=== PATIENT | male | born 1940 | race Caucasian/White ===

== ENCOUNTER 2022-12-03 14:39 | Emergency (ER) | payer MEDICARE, SELFPAY ==
[2022-12-03] VITALS (8 sets, daily range): BP systolic 125–162; BP diastolic 76–96; PULSE 84–95; RESP 16–18; TEMP 36.6; O2SAT 92–97; BMI 23.8
--- NOTE | 2022-12-03 17:30 | CTR_ITS ---
PROCEDURE INFORMATION: Exam: CT Head Without Contrast Exam date and time: 12/03/2022 6:16 PM Age: 82 years old Clinical indication: Weakness, extremity; Right; Additional info: Right sided weakness TECHNIQUE: Imaging protocol: Computed tomography of the head without contrast. Radiation optimization: All CT scans at this facility use at least one of these dose optimization techniques: automated exposure control; mA and/or kV adjustment per patient size (includes targeted exams where dose is matched to clinical indication); or iterative reconstruction. Other protocol: This patient has received 0 known CTs and 0 known cardiac nuclear medicine studies in the 12 months prior to the current study. COMPARISON: No relevant prior studies available. RADIATION DOSE METRICS: Total DLP (mGy-cm): 1121.53 FINDINGS: Brain: No acute infarct. No hemorrhage. Involutional changes of the brain, commensurate with age. No mass effect. Cerebral ventricles: Mild ex vacuo prominence of the ventricles, proportionate to the overall degree of cerebral volume loss. No significant ventriculomegaly. Paranasal sinuses: Visualized sinuses are unremarkable. No fluid levels. Mastoid air cells: Visualized mastoid air cells are well aerated. Bones/joints: Unremarkable. No acute fracture. Soft tissues: Unremarkable. CT/CT head wo con* [id number] IMPRESSION: No acute intracranial abnormality.
--- NOTE | 2022-12-03 17:31 | W.ED.EXTPRO ---
HPI - Extremity Problem General: Chief complaint: Extremity Problem,Nontraumatic Stated complaint: stroke like symptoms sent by pcp Time Seen by Provider: 12/03/22 17:10 History of Present Illness: Patient is brought in with a male family member today for reports of weakness on the right side. Between the patient and the family member I am able to gather that the patient went to bed feeling normally and woke up this morning with tingling and weakness in his right hand. The family member reports seeing the patient dropped his keys 2-3 times and states that that is abnormal for him. The family member reports that the patient looks normally in the face and also has speech that is his baseline. The family member reports that the patient is difficult to understand normally. The patient denies any history of stroke. He denies that he has any chronic medical problems and does not take any medications routinely at home. Associated symptoms: Deny chest pain or fever(s) Review of Systems Const: Denies: fever(s) or chills Card: Denies: chest pain or palpitations Resp: Denies: dyspnea, productive cough or non-productive cough GI: Denies: abdominal pain, nausea or vomiting : Denies: flank pain, difficulty urinating or dysuria Musc: Reports: muscle weakness Neuro: Reports: numbness in extremities and weakness in extremities; Denies: headache(s) PFSH ED PFSH: Social History Smoking and tobacco status: former smoker Quit status (tobacco): has quit using tobacco Second hand smoke exposure: No Alcohol intake: current Alcohol intake frequency: 0-2 Drinks per Day Desire information about alcohol rehabilitation?: No Adopted: No Household members: none Housing: House Physical Exam Const: COMMON NORMALS: alert ORIENTATION/CONSCIOUSNESS: Yes oriented to person, Yes oriented to place and Yes oriented to time (Patient oriented but struggles to tell me his birthdate) OTHER: The patient is lying in bed in no acute distress with his family member at the bedside. HPI is difficult to ascertain as the patient's speech is very difficult to understand and the family member does not know. Eye: GENERAL EYE: other (Right eye appears slightly drooped as compared to left eye) ALIGNMENT: Yes alignment normal PUPIL: Yes pupil size - right Right pupil size (mm): 2.5 and Yes pupil size - left Resp: COMMON NORMALS: normal respiratory effort, No use of accessory muscles and clear to auscultation bilaterally AUSCULTATION: clear to auscultation bilaterally GI: COMMON NORMALS: Normal to inspection, nondistended, normoactive bowel sounds present, Soft to palpation and non-tender PALPATION: Yes Soft to palpation Neuro: SENSORIUM/ORIENTATION: Yes alert, Yes oriented to person, Yes oriented to place and Yes oriented to time (Patient oriented but struggles to tell me his birthdate) COORDINATION/BALANCE: No [id number] test normal SPEECH: abnormal speech Details: garbled (Patient and family state baseline) and slurred SENSORY EXAM: Yes Normal double simultaneous stimulation for sensation COORDINATION: [id number] test abnormal OTHER: NIHSS-4 Course Vital Signs: Vital signs: Vital Signs Temperature 97.8 F 12/03/22 14:45 Pulse Rate 86 12/03/22 18:51 Respiratory Rate 16 12/03/22 18:51 Blood Pressure 151/76 12/03/22 20:28 Pulse Oximetry 94 12/03/22 18:51 Oxygen Delivery Me thod 12/03/22 18:51 MDM - Extremity (Nontraumatic) Medical Decision Making This is an 82-year-old male patient is in today for some changes in his strength and sensation of his right arm. The last time he knew normal was last night and then he woke up today feeling like his right arm was numb and not working appropriately. Patient was taken to an urgent care and diagnosed with a urinary tract infection. They started him on antibiotics for this but advised him to come to the ER for strokelike symptoms. Patient has baseline garbled slurred speech per himself and the family member. Patient does not see a primary care provider does not take continuous home medications. Patient does show a slight drift of his right arm, there is slight deviation of his tongue to the right, noted word searching at times, slurred and garbled dysarthric speech. I am unsure what is baseline or not. The family member says that the speech and the word searching is baseline. The CT head is normal, labs do not indicate major bacterial infection. Assessment remains unchanged during the time that the patient is in the ER. I discussed this case with Dr. Reynoso. He agreed with plan of care and work-up at this time. I discussed the results of test with the pt and his family member and discussed consulting neurology with admission to the hospital for observation and further evaluation. Patient does not want to be admitted to the hospital does wish to be discharged to home now. We discussed the risks of ischemic stroke. Patient is agreeable to starting a baby aspirin daily. I will consult case management to help patient set up with a primary care provider for further evaluation. Return to the ER as needed for any new or worsening symptoms Lab Data 12/03/22 17:00 12/03/22 17:[address] 12/03/22 17:30 IMPRESSION: No acute intracranial abnormality. Laboratory Results WBC 6.6 10^3/uL (4.0-10.0) 12/03/22 17:00 RBC 3.40 10^6/uL (4.1-5.3) L 12/03/22 17:00 Hgb 10.2 g/dL (11.7-16.6) L 12/03/22 17:00 Hct 32.8 % (42.0-52.0) L 12/03/22 17:00 MCV 96.5 fl (80-94) H 12/03/22 17:00 MCH 30.0 pg (28.0-34.0) 12/03/22 17:00 MCHC 31.1 g/dL (30.0-36.0) 12/03/22 17:00 RDW 14.8 % (12.1-15.1) 12/03/22 17:00 Plt Count 190 10^3/cmm (130-400) 12/03/22 17:00 MPV 10.5 fL (7.4-10.4) H 12/03/22 17:00 Neut % (Auto) 68.0 % 12/03/22 17:00 Lymph % (Auto) 17.5 % 12/03/22 17:00 [place] % (Auto) 13.7 % 12/03/22 17:00 Eos % (Auto) 0.2 % 12/03/22 17:00 Baso % (Auto) 0.3 % 12/03/22 17:00 Neut # (Auto) 4.49 10^3/uL (1.8-7.7) 12/03/22 17:00 Lymph # (Auto) 1.2 10^3/uL (0.8-4.8) 12/03/22 17:00 [place] # (Auto) 0.9 10^3/uL (0.2-0.9) 12/03/22 17:00 Eos # (Auto) 0.0 10^3/uL (0.0-0.8) 12/03/22 17:00 Baso # (Auto) 0.0 10^3/uL (0.0-0.1) 12/03/22 17:00 Nucleated RBC % (auto) 0 % 12/03/22 17:00 Nucleated RBCs # 0.0 /100WBC 12/03/22 17:00 PT 15.30 SECONDS (12.1-14.9) H 12/03/22 17:00 INR 1.17 (0.8-1.2) 12/03/22 17:00 APTT 32.8 SECONDS (23.9-36.7) 12/03/22 17:00 Sodium 137 mmol/L (136-145) 12/03/22 17:00 Potassium 3.7 mmol/L (3.5-5.1) 12/03/22 17:00 Chloride 101 mmol/L (98-107) 12/03/22 17:00 Carbon Dioxide 23 mmol/L (22-29) 12/03/22 17:00 Anion Gap 16.7 (5-19) 12/03/22 17:00 BUN 13 mg/dL (8-23) 12/03/22 17:00 Creatinine 0.8 mg/dL (0.7-1.2) 12/03/22 17:00 GFR Calculation Not Reportable 12/03/22 17:00 Glucose 100 mg/dL (65-115) 12/03/22 17:00 Calculated Osmolality 284 mOsm/kg (285-295) L 12/03/22 17:00 Calcium 9.0 mg/dL (8.5-10.5) 12/03/22 17:00 Total Bilirubin 1.3 mg/dL (0.15-1.2) H 12/03/22 17:00 AST 34 U/L (0-40) 12/03/22 17:00 ALT 28 U/L (0-41) 12/03/22 17:00 Alkaline Phosphatase 24 U/L (40-130) L 12/03/22 17:00 Total Protein 6.9 g/dL (6.6-8.7) 12/03/22 17:00 Albumin 4.0 g/dL (3.5-5.2) 12/03/22 17:00 Globulin 2.9 g/dL (1.3-4.6) 12/03/22 17:00 Discharge Plan Discharge Patient Disposition: Home Clinical Impression: Acute right-sided weakness Condition: Stable Prescriptions: New aspirin 81 mg tablet,delayed release (DR/EC) 81 mg PO DAILY Qty: 14 0RF No Action sulfamethoxazole-trimethoprim [Bactrim DS] 800-160 mg tablet 1 tab PO BID 7 Days Qty: 14 0RF Discharge Orders: Discharge ED (Routine); Ordered 12/03/22 Ordered By: Ca Latham Discharge Diet: Usual diet Discharge Activity: Increase activity as tolerated Patient Instructions: Stroke (DC) Activity Restrictions/Additional Instructions: Your testing today did not indicate any acute infection or abnormality of your brain. As we discussed that does not rule out an ischemic stroke. I have referred you to neurology in case management will help you to establish with a primary care provider. I recommend starting baby aspirin daily I have ordered this medication for you. Be sure and take the antibiotic prescribed for you for your urinary tract infection earlier today. Return to the emergency department as needed for any new or worsening symptoms. Coding Level of Care Code ED Feed Management Advisor for Maya Warner
[2022-12-03 17:37] LABS: Basophils % 0.3 %; Eosinophils % 0.2 %; Hematocrit 32.8 % (42.0-52.0); Hemoglobin 10.2 g/dL (11.7-16.6); Lymphocytes # 1.2 10^3/uL (0.8-4.8); Lymphocytes % 17.5 %; Mean Corpuscular HGB Conc 31.1 g/dL (30.0-36.0); Mean Corpuscular Volume 96.5 fl (80-94); Mean Platelet Volume 10.5 fL (7.4-10.4); Monocytes # 0.9 10^3/uL (0.2-0.9); Monocytes % 13.7 %; Neutrophils # 4.49 10^3/uL (1.8-7.7); Nucleated Red Blood Cells % 0 %; Platelet Count 190 10^3/cmm (130-400); Red Cell Distribution Width 14.8 % (12.1-15.1); White Blood Count 6.6 10^3/uL (4.0-10.0)
[2022-12-03 17:51] LABS: INR 1.17 (0.8-1.2)
[2022-12-03 17:52] LABS: Partial Thromboplastin Time 32.8 SECONDS (23.9-36.7)
[2022-12-03 18:08] LABS: Alanine Aminotransferase 28 U/L (0-41); Alkaline Phosphatase 24 U/L (40-130); Anion Gap 16.7 (5-19); Aspartate Amino Transferase 34 U/L (0-40); Blood Urea Nitrogen 13 mg/dL (8-23); Carbon Dioxide 23 mmol/L (22-29); Chloride 101 mmol/L (98-107); Globulin 2.9 g/dL (1.3-4.6); Glucose 100 mg/dL (65-115); Osmolality Calculated 284 mOsm/kg (285-295); Potassium 3.7 mmol/L (3.5-5.1); Sodium 137 mmol/L (136-145); Total Bilirubin 1.3 mg/dL (0.15-1.2); Total Protein 6.9 g/dL (6.6-8.7)
--- NOTE | 2022-12-07 15:02 | DCPLANNER ---
Addendum entered by Yolis Silva 03/18/23 08:50: This appointment was cancelled Addendum entered by Yolis Silva 12/10/22 09:00: Patient has a follow up appointment scheduled for Friday, March 17, [address] Blanco at neurology. Clinic will call patient with appointment information. Original Note: affiliate manager had message to schedule a follow up appointment for patient with neurology. affiliate manager sent patients information to the front office staff at neurology. Patients information will be printed and reviewed. Clinic will call patient with appointment information. affiliate manager also had message to speak with patient about getting established with a primary care physician. affiliate manager called phone number [phone], unable to speak with patient at this time. A voicemail was left for patient to return case assembler phone call.
== END 2022-12-03 20:29 | disposition home or self-care (01) ==
PROVIDERS: Emergency Provider Nurse Practitioner Family
DX: R53.1 Weakness (principal); N39.0 Urinary tract infection, site not specified
CPT/HCPCS: 70450; 80053; 81003; 85025; 85610; 85730; 87077; 87086; 87184; 99284

== ENCOUNTER 2023-07-21 11:52 | Emergency (ER) | payer MEDICARE, SELFPAY ==
--- NOTE | 2023-07-21 11:56 | XR_ITS ---
WS: [id number] EXAMINATION: XR chest 1V portable [id number] REASON FOR EXAM: a fib COMPARISON: 04/08/2008 ORDER DATE: 07/21/2023 11:59 AM TECHNIQUE: A single, portable frontal chest x-ray was obtained. X-RAY FINDINGS/IMPRESSION: There is moderate size right effusion and small left effusion with possible subtle underlying infiltr ate which is not well demonstrated due to the opacity from the effusions. The remaining lungs are cathy ar. There is atherosclerotic aortic change. Consider further evaluating the lung bases either with bi lateral decubitus views of the chest to shift to the effusions or CT of the chest.
--- NOTE | 2023-07-21 11:57 | ECG_ITS ---
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 Measurements Intervals [place] Rate: 134 P: 0 RI: 0 QRS: -75 QRSD: 78 T: 252 QT: 324 QTc: 485 Interpretive Statements ATRIAL FIBRILLATION WITH RAPID VENTRICULAR RESPONSE LEFT ANTERIOR FASCICULAR BLOCK [QRS AXIS <= -45, QR IN I, RS IN II] POSSIBLE ANTERIOR MYOCARDIAL INFARCTION , PROBABLY OLD [30 ms Q WAVE IN V3/V4, OR R < 0.2 mV IN V4] Compared to ECG 08/23/2019 12:10:48 Myocardial infarct finding now present Sinus bradycardia no longer present Electronically Signed On 07-21-2023 12:44:18 CDT by Zana Sidhu M.D. [id number]
[2023-07-21 11:59] VITALS: BP 112/85; PULSE 129; RESP 19; O2SAT 99
[2023-07-21 12:17] LABS: Basophils % 0.6 %; Eosinophils % 0.2 %; Hematocrit 37.3 % (37-53); Lymphocytes # 0.8 10^3/uL (0.8-4.8); Lymphocytes % 16.3 %; Mean Corpuscular HGB Conc 31.6 g/dL (30-55); Mean Corpuscular Hemoglobin 30.4 pg (27-33); Mean Corpuscular Volume 96.1 fl (82-101); Mean Platelet Volume 11.2 fL (7.4-10.4); Monocytes # 0.7 10^3/uL (0.2-0.9); Monocytes % 14.4 %; Neutrophils # 3.21 10^3/uL (1.8-7.7); Neutrophils % 68.1 %; Nucleated Red Blood Cells % 0 %; Platelet Count 151 10^3/cmm (157-399); Red Blood Count 3.88 10^6/uL (3.85-5.65); Red Cell Distribution Width 15.9 % (12.1-15.1); White Blood Count 4.72 10^3/uL (3.29-11.43)
[2023-07-21] MEDS: dilTIAZem 5 mg/mL SDV 5 mL 10 MG IVP (12:27)
[2023-07-21 12:28] LABS: INR 1.19 (0.8-1.2)
[2023-07-21 12:35] LABS: Troponin(5th) Baseline 20 ng/L (0-15)
--- NOTE | 2023-07-21 12:39 | ED_ITS ---
HPI - Weakness General: Chief complaint: Weakness Stated complaint: Weakness/ Afib Time Seen by Provider: 07/21/23 11:56 History of Present Illness: Patient presents to the ER from failure clinic sent over for A-fib RVR. EMS reports he had a heart rate around 100 2260 beats a minute, patient denies having any history of A-fib or taken any medicines patient also denies any history of cardiac illness. Patient was being seen over there for swelling in his bilateral lower extremities. Review of Systems General: Reports: 10 or more systems reviewed and unremarkable except in HPI and below PFSH ED PFSH: Social History Smoking and tobacco status: former smoker Quit status (tobacco): has quit using tobacco Second hand smoke exposure: No Alcohol intake: current Alcohol intake frequency: 0-2 Drinks per Day Desire information about alcohol rehabilitation?: No Adopted: No Household members: none Housing: House Physical Exam Const: COMMON NORMALS: no acute distress, average body habitus, patient oriented x3, no limitations, healthy appearing, alert and well nourished HENMT: COMMON NORMALS: normocephalic, atraumatic, hearing grossly normal bilaterally, external ears normal, Normal external nose present and moist oral mucous membranes HEAD & SCALP: normocephalic and atraumatic NOSE: Normal external nose present EXTERNAL EAR: Yes external ears normal Neck/C-Spine: COMMON NORMALS: full ROM, no lymphadenopathy, supple, no meningeal signs, no JVD and Thyroid normal THYROID: Thyroid normal Lymph: LYMPHATIC: no lymphadenopathy noted Chest: COMMONS NORMALS: normal inspection of the chest and normal palpation of entire chest wall Resp: COMMON NORMALS: normal respiratory effort, No retractions, No use of accessory muscles and clear to auscultation bilaterally AUSCULTATION: clear to auscultation bilaterally Cardio: COMMON NORMALS: no JVD and S1 normal heart sound present; negative for regular rate (Tachycardic) and negative for regular rhythm (Irregularly irregular) RATE: abnormal rate (Tachycardic) RHYTHM: abnormal rhythm (Irregularly irregular) HEART SOUNDS: S1 normal heart sound present GI: COMMON NORMALS: Normal to inspection, nondistended, normoactive bowel sounds present, Soft to palpation, non-tender, No hepatosplenomegaly present and no masses PALPATION: Yes Soft to palpation and Yes No hepatosplenomegaly present : COMMON NORMALS: Yes no CVA tenderness BLADDER/KIDNEY EXAM: Yes no CVA tenderness Back/Pelvis: COMMON NORMALS: no CVA tenderness Neuro: COMMON NORMALS: patient oriented x3 SENSORIUM/ORIENTATION: Yes alert MENINGEAL SIGNS: Yes no meningeal signs Course Vital Signs: Vital signs: Vital Signs Pulse Rate 103 H 07/21/23 16:14 Respiratory Rate 16 07/21/23 14:51 Blood Pressure 122/74 07/21/23 16:14 Pulse Oximetry 94 07/21/23 16:14 Oxygen Delivery Me thod Room Air 07/21/23 14:51 MDM - Weakness Medical Decision Making Patient presents to the ER with A-fib with RVR new onset. Patient was worked up with a standard cardiac fashion that showed an elevated BNP of approximately 2500, serial troponins were benign, after 20 mg Cardizem IM patient's heart rate stabilized around 95-100. Further testing was discussed with the patient who decided that he did not want to stay and wanted be worked up on an outpatient basis. I feel this is logical because the patient was stable during his time here. Patient will be placed on Eliquis and Cardizem p.o. and be referred back to his family practice doctor for further evaluation and treatment. Differential Diagnosis Unlikely acute myocardial infarction, anemia, hypoglycemia, hypothyroidism, rhabdomyolysis, sepsis or dehydration Medical Records I reviewed the patient's medical records. Lab Data I reviewed the patient's lab results. 07/21/23 12:10 07/21/23 12:10 Laboratory Results WBC 4.72 10^3/uL (3.29-11.43) 07/21/23 12:10 RBC 3.88 10^6/uL (3.85-5.65) 07/21/23 12:10 Hgb 11.80 g/dL (11.27-16.99) 07/21/23 12:10 Hct 37.3 % (37-53) 07/21/23 12:10 MCV 96.1 fl (82-101) 07/21/23 12:10 MCH 30.4 pg (27-33) 07/21/23 12:10 MCHC 31.6 g/dL (30-55) 07/21/23 12:10 RDW 15.9 % (12.1-15.1) H 07/21/23 12:10 Plt Count 151 10^3/cmm (157-399) L 07/21/23 12:10 MPV 11.2 fL (7.4-10.4) H 07/21/23 12:10 Neut % (Auto) 68.1 % 07/21/23 12:10 Lymph % (Auto) 16.3 % 07/21/23 12:10 [place] % (Auto) 14.4 % 07/21/23 12:10 Eos % (Auto) 0.2 % 07/21/23 12:10 Baso % (Auto) 0.6 % 07/21/23 12:10 Neut # (Auto) 3.21 10^3/uL (1.8-7.7) 07/21/23 12:10 Lymph # (Auto) 0.8 10^3/uL (0.8-4.8) 07/21/23 12:10 [place] # (Auto) 0.7 10^3/uL (0.2-0.9) 07/21/23 12:10 Eos # (Auto) 0.0 10^3/uL (0.0-0.8) 07/21/23 12:10 Baso # (Auto) 0.0 10^3/uL (0.0-0.1) 07/21/23 12:10 Nucleated RBC % (auto) 0 % 07/21/23 12:10 Nucleated RBCs # 0.0 /100WBC 07/21/23 12:10 PT 15.50 SECONDS (12.1-14.9) H 07/21/23 12:10 INR 1.19 (0.8-1.2) 07/21/23 12:10 Sodium 139 mmol/L (136-145) 07/21/23 12:10 Potassium 4.5 mmol/L (3.5-5.1) 07/21/23 12:10 Chloride 105 mmol/L (98-107) 07/21/23 12:10 Carbon Dioxide 24 mmol/L (22-29) 07/21/23 12:10 Anion Gap 14.5 (5-19) 07/21/23 12:10 BUN 16 mg/dL (8-23) 07/21/23 12:10 Creatinine 0.7 mg/dL (0.7-1.2) 07/21/23 12:10 GFR Calculation Not Reportable 07/21/23 12:10 Glucose 131 mg/dL (65-115) H 07/21/23 12:10 Calculated Osmolality 291 mOsm/kg (285-295) 07/21/23 12:10 Calcium 8.8 mg/dL (8.5-10.5) 07/21/23 12:10 Magnesium 2.2 mg/dL (1.7-2.3) 07/21/23 12:10 Total Bilirubin 1.3 mg/dL (0.15-1.2) H 07/21/23 12:10 AST 19 U/L (0-40) 07/21/23 12:10 ALT 11 U/L (0-41) 07/21/23 12:10 Alkaline Phosphatase 32 U/L (40-130) L 07/21/23 12:10 Troponin T Baseline 20 ng/L (0-15) H 07/21/23 12:10 Troponin T 120 Minute 21.66 ng/L (0-15) H 07/21/23 13:48 Delta Troponin T 1.66 ABS# (0-10) 07/21/23 13:48 NT-Pro-B Natriuret Pep 2563 pg/mL (0-450) H 07/21/23 12:10 Total Protein 7.2 g/dL (6.6-8.7) 07/21/23 12:10 Albumin 3.6 g/dL (3.5-5.2) 07/21/23 12:10 Globulin 3.6 g/dL (1.3-4.6) 07/21/23 12:10 TSH 5.91 uIU/mL (0.27-4.20) H 07/21/23 12:10 All radiology interpretation(s) finalized by discharge EKG Data EKG 1: I personally reviewed and interpreted this EKG as follows: EKG interpretation date: 07/21/23 EKG interpretation time: 12:16 Prior EKG tracings: not available for review Interpretation: EKG showed ventricular rate of 134 bpm, QRS duration 78, QTc of 403, atrial fibrillation with RVR. EKG 2: I personally reviewed and interpreted this EKG as follows: EKG interpretation date: 07/21/23 EKG interpretation time: 14:05 Prior EKG tracings: available for review Interpretation: EKG showed ventricular rate 130 bpm, QRS duration 85, QTc 406, atrial flutter/tachycardia with RVR Discharge Plan Discharge Patient Disposition: Home Clinical Impression: Atrial fibrillation with RVR Condition: Stable Prescriptions: New Eliquis 5 mg tablet 5 mg PO BID Qty: 60 0RF Cardizem CD 120 mg capsule,extended release 24hr 120 mg PO DAILY Qty: 30 0RF Discharge Orders: Discharge ED (Routine); Ordered 07/21/23 Ordered By: Yuriy Garcia Patient Instructions: Anticoagulation Therapy, A-fib (Atrial Fibrillation) (ED) Activity Restrictions/Additional Instructions: Please take all medicine as directed. Please follow-up with your family practice physician within the next 7 days for further evaluation and treatment. This may include things such as echocardiogram, cardiac stress test, and/or referral to a freight car builder. Coding Level of Care Code ED Tinware Lithograph Press Operator for Maya Warner
[2023-07-21 12:46] LABS: Alanine Aminotransferase 11 U/L (0-41); Albumin Level 3.6 g/dL (3.5-5.2); Alkaline Phosphatase 32 U/L (40-130); Anion Gap 14.5 (5-19); Aspartate Amino Transferase 19 U/L (0-40); Blood Urea Nitrogen 16 mg/dL (8-23); Calcium 8.8 mg/dL (8.5-10.5); Carbon Dioxide 24 mmol/L (22-29); Chloride 105 mmol/L (98-107); Globulin 3.6 g/dL (1.3-4.6); Glucose 131 mg/dL (65-115); Magnesium 2.2 mg/dL (1.7-2.3); NT Pro B Type Natriuretic Pept 2563 pg/mL (0-450); Osmolality Calculated 291 mOsm/kg (285-295); Potassium 4.5 mmol/L (3.5-5.1); Sodium 139 mmol/L (136-145); Thyroid Stimulating Hormone 5.91 uIU/mL (0.27-4.20); Total Bilirubin 1.3 mg/dL (0.15-1.2); Total Protein 7.2 g/dL (6.6-8.7)
[2023-07-21 12:59] VITALS: BP 110/76; PULSE 112; RESP 22
--- NOTE | 2023-07-21 14:05 | ECG_ITS ---
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 Measurements Intervals [place] Rate: 130 P: 0 CA: 0 QRS: -57 QRSD: 85 T: 264 QT: 329 QTc: 485 Interpretive Statements ATRIAL FIBRILLATION WITH RAPID VENTRICULAR RESPONSE LEFT AXIS DEVIATION [QRS AXIS < -30] ST DEVIATION AND MODERATE T-WAVE ABNORMALITY, CONSIDER LATERAL ISCHEMIA [-0.1+ mV T-WAVE IN I/aVL/V5/V6] Compared to ECG 07/21/2023 12:16:26 Left-axis deviation now present T-wave abnormality now present Possible ischemia now present Left anterior fascicular block no longer present Myocardial infarct finding no longer present Electronically Signed On 07-21-2023 16:36:37 CDT by Zana Sidhu M.D. [id number]
[2023-07-21 14:08] VITALS: BP 128/89; PULSE 120; RESP 23; O2SAT 91
[2023-07-21] MEDS: dilTIAZem 5 mg/mL SDV 5 mL 20 MG IVP (14:22)
[2023-07-21 14:23] LABS: Troponin 5 2HR 21.66 ng/L (0-15)
[2023-07-21 14:24] VITALS: BP 120/97; PULSE 116; RESP 17; O2SAT 96
[2023-07-21 14:24] LABS: Troponin 5 2HR Delta 1.66 ABS# (0-10)
--- NOTE | 2023-07-21 14:26 | CT_ITS ---
WS: [id number] CT CHEST TECHNIQUE: Contrast enhanced CT of the chest with coronal and sagittal reformatted images. CLINICAL INFORMATION: dyspnea, abnormal cxr COMPARISON: None. DLP: 273.[address] scans at [facility] use at least one of these dose optimization techniques: automated e xposure control; mA and/or kV adjustment per patient size (includes targeted exams where dose is matc hed to clinical indication); or iterative reconstruction. FINDINGS: Moderate chronic emphysematous changes. Moderate RIGHT and small pleural effusions. Compressive atele ctasis in the lung bases. Subsegmental atelectasis in the lingula. RIGHT middle lobe nodule along the fissure measuring 7 mm. A few calcified granulomas. Normal caliber thoracic aorta. Aortic calcificat ion. Coronary calcification. No mediastinal or hilar lymphadenopathy. No axillary lymphadenopathy. Small amount of perihepatic and perisplenic ascites. Heterogeneous enlarged liver partially visualize d. Tiny pericardial effusion. Adrenal glands are normal. Incidental splenic cyst and granulomas. Ankylosis thoracic spine. Cardiomegaly. Enlarged RIGHT heart. IMPRESSION: 1. Moderate RIGHT and small LEFT pleural effusions with compressive atelectasis in the lung bases. R ecommend correlation for pneumonia. 2. Moderate chronic emphysematous changes. 3. Cardiomegaly with enlarged RIGHT heart. Contrast reflux into the hepatic veins. Recommend correla tion with RIGHT heart dysfunction. 4. No mediastinal or hilar lymphadenopathy. 5. Partially visualized enlarged heterogeneous liver. Recommend correlation with liver function stud ies. 6. Partially visualized small amount of perihepatic and perisplenic ascites.
[2023-07-21 14:51] VITALS: BP 182/69; PULSE 92; RESP 16; O2SAT 94
[2023-07-21] MEDS: iohexol 350 mg/mL 500 mL Btl (per mL) IV (14:51)
[2023-07-21 16:14] VITALS: BP 122/74; PULSE 103; O2SAT 94
== END 2023-07-21 16:16 | disposition home or self-care (01) ==
PROVIDERS: Emergency Provider Emergency Medicine
DX: I48.20 Chronic atrial fibrillation, unspecified (principal); Z87.891 Personal history of nicotine dependence
CPT/HCPCS: 36415; 71045; 71260; 80053; 83735; 83880; 84443; 84484; 85025; 85610; 93005; 96374; 96375; 99285; J3490; Q9967

== ENCOUNTER → 2023-08-03 13:51 | Outpatient (BNVA) | payer MEDICARE, SELFPAY | PROVIDERS: PCP Family Medicine; Referring Provider Family Medicine; Visit Provider Internal Medicine Cardiovascular Disease | DX: I48.91 Unspecified atrial fibrillation (principal); R60.9 Edema, unspecified; R06.02 Shortness of breath; Z87.891 Personal history of nicotine dependence; Z79.01 Long term (current) use of anticoagulants | CPT/HCPCS: 99204 ==

== ENCOUNTER → 2023-08-17 12:52 | Outpatient (BNVA) | payer MEDICARE, SELFPAY | PROVIDERS: PCP Family Medicine; Visit Provider Nurse Practitioner Family | DX: I48.91 Unspecified atrial fibrillation (principal); Z79.01 Long term (current) use of anticoagulants; Z87.891 Personal history of nicotine dependence | CPT/HCPCS: 99213 ==

== ENCOUNTER 2023-08-19 08:36 | Outpatient (CLI) | payer MEDICARE, SELFPAY ==
--- NOTE | 2023-08-19 08:45 | USCV_ITS ---
Caity Nolan(Bruce) Age: 83 Gender: M : 1940 Exam Date: 08/19/2023 09:01 Ordering Phys: Luis Miguel Gaffney MD ([email or web address]) Technologist: Exam Location: [facility] [place] Indication: chest pain BP: 125 / 74 HR: 115 Rhythm: Sinus Technical Quality: Adequate MEASUREMENTS (Male / Female) Normal Values 2D ECHO LV Diastolic Diameter PLAX 4.1 cm 4.2 - 5.9 / 3.9 - 5.3 cm LV Systolic Diameter PLAX 2.9 cm IVS Diastolic Thickness 1.2 cm 0.6 - 1.0 / 0.6 - 0.9 cm IVS Systolic Thickness 1.7 cm LVPW Diastolic Thickness 1.1 cm 0.6 - 1.0 / 0.6 - 0.9 cm LVPW Systolic Thickness 1.5 cm LVOT Diameter 2.0 cm LV Ejection Fraction 2D Teich 53.9 % LV Ejection Fraction MOD 2C 55.4 % LV Ejection Fraction 2C AL 57.2 % LA Diameter 3.8 cm IVC Diameter 1.9 cm M-MODE Aortic Annulus Diameter 3.4 cm LA Ao Ratio MM 1.1 MV E Point Septal Separation 1.0 cm DOPPLER AV Peak Velocity 88.0 cm/s LVOT Peak Velocity 69.0 cm/s AV Area Cont Eq vti 2.3 cm squared AV Area Cont Eq pk 2.5 cm squared MV Area PHT 4.9 cm squared Mitral E to A Ratio 3.3 MV E' Velocity 47.0 cm/s Mitral E to MV E' Ratio 8.1 Mitral E to LV E' Lateral Ratio 8.8 Mitral E to LV E' Septal Ratio 7.5 TR Peak Velocity 236.0 cm/s TR Peak Gradient 22.3 mmHg TV Peak E Velocity 140.0 cm/s Right Atrial Pressure 8.0 mmHg Pulmonary Artery Systolic Pressu 30.3 mmHg RV Acceleration Time 0.1 s FINDINGS Left Ventricle Normal left ventricular size and systolic function, EF 61 %. No regional wall motion abnormalities. Right Ventricle Normal LV size with a slightly diminished ejection fraction Right Atrium Mildly increased right atrial size. Left Atrium Mildly increased left atrial size. Mitral Valve Thickened mitral valve. Mild mitral annular calcification. Mild to moderatemitral valve regurgitation. Aortic Valve Thickened aortic valve. Tricuspid Valve Mild tricuspid valve regurgitation. Estimated pulmonary artery peak systolic pressure of 30 mm Hg Pulmonic Valve Pulmonic valve not well visualized. Pericardium Small pericardial effusion. Aorta Normal aortic annulus size. IVC Normal IVC dimension with <50% respiratory change of the inferior vena cava. CONCLUSIONS Normal left ventricular size and systolic function, EF 61 %. No regional wall motion abnormalities. Mild biatrial enlargement Small pericardial effusion. Mild tricuspid valve regurgitation. Estimated pulmonary artery peak systolic pressure of 30 mm Hg. Thickened aortic valve. Thickened mitral valve. Mild mitral annular calcification. Mild to moderatemitral valve regurgitation. There are no intracardiac masses. Compared to the study from 09/11/2019, the biatrial enlargement and pericardial effusion appears to be new. The patient also appears to be in atrial fibrillation during the study. Revised report of the study from 12/2022 Dr Luis Miguel Gaffney MD [facility] (Electronically Signed) Final Date: 23 August 2023 08:52 Amended: 26 August 2023 08:57 C
== END 2023-08-19 08:37 | disposition home or self-care (01) ==
PROVIDERS: PCP Family Medicine; Visit Provider Internal Medicine Cardiovascular Disease
DX: R06.09 Other forms of dyspnea (principal); R07.9 Chest pain, unspecified; I48.91 Unspecified atrial fibrillation; I31.39 Other pericardial effusion (noninflammatory); I08.3 Combined rheumatic disorders of mitral, aortic and tricuspid valves
CPT/HCPCS: 93306

== ENCOUNTER 2023-08-19 09:40 | Outpatient (CLI) | payer MEDICARE, SELFPAY ==
--- NOTE | 2023-08-19 | ECG_ITS ---
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 Interpretive Statements NAME OF STUDY: LEXISCAN SESTAMIBI STRESS TEST INDICATION: AFIB PROCEDURE: At the baseline, the EKG revealed atrial fibrillation with a diffuse nonspecific ST changes. Controlled ventricular response rate of 84 bpm. The baseline heart was 123 bpm with a blood pressue of 144/89 mm of Hg Lexiscan was infused over a period of 20 seconds. A total of 0.4 milligrams of Lexiscan was infused. The stress phase was continued for a total of 5 minutes. Heart rate at the end of the stress phase was 135 bpm with a blood pressure 146/106 mm of Hg. The EKG at the peak infusion revealed no significant changes. Sestamibi was injected 20 seconds after the Lexiscan infusion. Heart rate at the end of the recovery phase was 155 bpm with a blood pressure of 127/86 mm of Hg. CONCLUSION: 1. No significant EKG changes with the LexiScan infusion 2. No LexiScan induced chest pain or cardiac arrhythmia 3. Normal blood pressure and heart rate response 4. Sestamibi/sestamibi perfusion scan pending; see separate report. Electronically Signed On 09-03-2023 12:30:41 LOOM FIXER by Luis Miguel Gaffney M.D. [id number]
[2023-08-19 10:28] VITALS: BMI 26.9
--- NOTE | 2023-08-19 10:33 | NMCV_ITS ---
NM mara perf SPECT r/s* [id number] Caity Nolan(Bruce) Age: 83 Gender: M : 1940 Exam Date: 08/19/2023 10:54 Ordering Phys: Luis Miguel Gaffney MD ([email or web address]) Technologist: DYLON Martel Exam Location: [facility] Indications: CORONARY ANGIOPLASTY STATUS STRESS TEST Please see separate stress test report in [facility] for full findings IMAGE PROTOCOL Rest/Stress 1 Lexiscan Day Radiopharmaceutical Dose (mCi) Administration Site Administered by Rest: Tc-99m 10.6 IV DYLON Donis Sestamibi Stress:Tc-99m 32.3 IV DYLON Donis Sestamibi Rest: 19-Aug-2023 60 Discovery 630 Stress: 19-Aug-2023 30 Discovery 630 0.4mg Lexiscan. Supine position only as patient was unable to lay prone. SPECT RESULTS Technical Quality: Excellent Raw Data Analysis: Normal Image Corrections: No attenuation or motion correction applied Summed Stress Score: 0 Summed Rest Score: 1 Summed Difference Score: 0 PERFUSION FINDINGS SPECT images demonstrate homogeneous tracer distribution throughout the myocardium. FUNCTIONAL RESULTS (calculated via Gated SPECT) Stress Image LV EF (%): 47 Stress EDV (mL):68 TID: 0.88 Stress ESV (mL):36 FUNCTIONAL FINDINGS: LV systolic function is mildly reduced with EF of 47% with mild global hypokinesis. IMPRESSIONS 1. Normal myocardial perfusion imaging with no evidence of ischemia. 2. LV systolic function is mildly reduced with EF of 47%. Mild global hypokinesis seen. Zana Sidhu MD (Electronically Signed) Final Date: 19 August 2023 13:03 S
[2023-08-19] MEDS: regadenoson 0.4 Mg/5 ml Syringe IVP (11:48)
[2023-08-19 12:17] VITALS: BP 134/89; PULSE 125
== END 2023-08-19 09:41 | disposition home or self-care (01) ==
LOC: RAD 09:40 → CDL 09:42
PROVIDERS: PCP Family Medicine; Visit Provider Internal Medicine Cardiovascular Disease
DX: I48.91 Unspecified atrial fibrillation (principal); Z98.61 Coronary angioplasty status
CPT/HCPCS: 36415; 78452; 93017; 96374; A9500; J2785

== ENCOUNTER → 2023-10-25 14:27 | Outpatient (BNVA) | payer MEDICARE, SELFPAY | PROVIDERS: PCP Family Medicine; Visit Provider Internal Medicine Cardiovascular Disease | DX: I48.91 Unspecified atrial fibrillation (principal); R60.9 Edema, unspecified; I50.30 Unspecified diastolic (congestive) heart failure; R53.1 Weakness; R06.02 Shortness of breath; Z87.891 Personal history of nicotine dependence; R00.2 Palpitations; Z79.01 Long term (current) use of anticoagulants | CPT/HCPCS: 36415; 80048; 83880; 99214 ==

== ENCOUNTER 2023-11-17 12:41 | Outpatient (CLI) | payer MEDICARE, SELFPAY ==
--- NOTE | 2023-11-17 13:01 | XR_ITS ---
WS: [id number] Acute abdomen series, 11/17/2023 Clinical Data: constipation Comparison: None. Findings: No nodules, masses or effusions are seen. The heart is normal. No pneumonia or pneumothorax is presen t. The pulmonary vascularity is not increased. The aortic arch and descending thoracic aorta show mil d tortuosity. The flat and upright films of the abdomen show no free air. There is a slight dextroscoliosis of the lumbar spine. 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 There is air in the small bowel and the colon but there is no obstruction. Vascular calcification is present. Impression: 1 atherosclerosis. 2. Moderate generalized ileus.
== END 2023-11-17 12:42 | disposition home or self-care (01) ==
LOC: RAD 12:44
PROVIDERS: PCP Family Medicine; Visit Provider Nurse Practitioner
DX: K59.00 Constipation, unspecified (principal); I70.90 Unspecified atherosclerosis; K56.7 Ileus, unspecified
CPT/HCPCS: 74021

== ENCOUNTER 2023-11-17 16:37 | Emergency (ER) | payer MEDICARE, SELFPAY ==
[2023-11-17 17:06] VITALS: BP 93/44; PULSE 122; RESP 18; TEMP 37.1; O2SAT 99
--- NOTE | 2023-11-17 18:11 | CTR_ITS ---
PROCEDURE INFORMATION: Exam: CT Abdomen And Pelvis With Contrast Exam date and time: 11/17/2023 7:35 PM Age: 83 years old Clinical indication: Abdominal pain; Generalized; Additional info: Constipation TECHNIQUE: Imaging protocol: Computed tomography of the abdomen and pelvis with contrast. Radiation optimization: All CT scans at this facility use at least one of these dose optimization techniques: automated exposure control; mA and/or kV adjustment per patient size (includes targeted exams where dose is matched to clinical indication); or iterative reconstruction. Contrast material: OMNI 350; Contrast volume: 100 ml; Contrast route: INTRAVENOUS (IV); COMPARISON: CR XR abdomen 3V [id number] 11/17/2023 1:16 PM RADIATION DOSE METRICS: Total DLP (mGy-cm): 387 FINDINGS: Coronary arteries: Coronary arterial atherosclerotic calcifications are present. Liver: Periportal edema in the liver.Multiple punctate calcifications in the spleen consistent with prior granulomatous infection. Gallbladder and bile ducts: Normal. No calcified stones. No ductal dilation. Pancreas: Normal. No ductal dilation. Spleen: Multiple cystic structures in the spleen measuring up to 2.1 cm. These may represent simple cysts. Adrenal glands: Normal. No mass. Kidneys and ureters: Bilateral simple appearing renal cysts are present which do not need further follow-up. Stomach and bowel: No bowel obstruction. Large stool burden. Appendix: No evidence of appendicitis. Intraperitoneal space: Unremarkable. No free air. No significant fluid collection. Vasculature: Severe atherosclerotic disease. Lymph nodes: Unremarkable. No enlarged lymph nodes. Urinary bladder: Unremarkable as visualized. Reproductive: Unremarkable as visualized. Bones/joints: Grade 1 posterior listhesis of L5 on S1. Severe degenerative disc disease at L5-S1. Soft tissues: Unremarkable. CT/CT abdomen pelvis w con* [id number] IMPRESSION: 1. No bowel obstruction. Large stool burden. 2. Severe atherosclerotic disease. COMMENTS: Consistent with the [employer]'s Incidental Findings Committee white paper (J Am Nikolay Radiol 2018): Any incidental renal lesion less than 1 cm or classified as too small to characterize, or any incidental cystic renal lesion characterized as simple-appearing, is likely benign. No follow-up imaging is recommended for these lesions per consensus recommendations based on imaging criteria.
[2023-11-17 18:35] VITALS: BP 107/70; PULSE 102; RESP 16; O2SAT 100
[2023-11-17 18:40] LABS: Basophils % 0.6 %; Eosinophils # 0.1 10^3/uL (0.0-0.8); Eosinophils % 1.4 %; Hematocrit 29.4 % (37-53); Lymphocytes # 1.2 10^3/uL (0.8-4.8); Lymphocytes % 24.3 %; Mean Corpuscular HGB Conc 31.6 g/dL (30-55); Mean Corpuscular Hemoglobin 30.9 pg (27-33); Mean Corpuscular Volume 97.7 fl (82-101); Monocytes # 0.8 10^3/uL (0.2-0.9); Monocytes % 14.7 %; Neutrophils # 2.98 10^3/uL (1.8-7.7); Neutrophils % 58.4 %; Nucleated Red Blood Cells % 0 %; Platelet Count 171 10^3/cmm (157-399); Red Blood Count 3.01 10^6/uL (3.85-5.65); Red Cell Distribution Width 15.8 % (12.1-15.1)
--- NOTE | 2023-11-17 18:56 | ED_ITS ---
HPI - General Adult 2 General: Chief complaint: General Medical Stated complaint: dr vega, unable to have bowel movement Time Seen by Provider: 11/17/23 18:03 Source: patient Mode of arrival: ambulatory Limitations: no limitations History of Present Illness: 83-year-old male who states that he had constipation last 2 days take some MiraLAX and has not been able a bowel movement he states his abdomen feels full he denies any pain he had no vomiting seen his PCP today was sent here to rule out a bowel obstruction. Denies any fever denies any worsening proving factors Associated symptoms: Deny chest pain, dyspnea, headache(s), nausea, rash or vomiting Review of Systems 2 Const: Denies: fever(s), chills, body aches or change in appetite ENMT: Denies: throat pain or dental pain Card: Denies: chest pain Resp: Denies: dyspnea GI: Reports: constipation; Denies: abdominal pain, nausea, vomiting or diarrhea Musc: Denies: neck pain or back pain Skin/Breast: Denies: rash Neuro: Denies: headache(s) PFSH ED 2 PFSH: Social History Smoking and tobacco/nicotine status: former use of tobacco/nicotine Quit status (tobacco/nicotine): has quit using Second hand smoke exposure: No Alcohol intake: current Alcohol intake frequency: 0-2 Drinks per Day Adopted: No Household members: none Housing: House Physical Exam 2 Const: COMMON NORMALS: no acute distress, patient oriented x3 and healthy appearing HENMT: COMMON NORMALS: normocephalic and atraumatic HEAD & SCALP: n ormocephalic and atraumatic Neck/C-Spine: COMMON NORMALS: full ROM and supple Chest: COMMONS NORMALS: normal inspection of the chest Resp: COMMON NORMALS: normal respiratory effort Cardio: COMMON NORMALS: regular rate, regular rhythm and No murmurs present (Cardio) RATE: regular rate RHYTHM: regular rhythm GI: COMMON NORMALS: Normal to inspection, nondistended, normoactive bowel sounds present, Soft to palpation, non-tender and no masses PALPATION: Yes Soft to palpation Extremity: COMMON NORMALS: normal to inspection and full ROM Neuro: COMMON NORMALS: patient oriented x3, moves all extremities and no focal motor deficits Psych: COMMON NORMALS: mental status grossly normal, Normal thought process present and cooperative THOUGHT PROCESS: Normal thought process present Skin: COMMON NORMALS: no rashes or lesions noted and no wounds GENERAL SKIN EXAM: no rashes or lesions noted Course 2 Vital Signs: Vital signs: Vital Signs Temperature 98.7 F 11/17/23 17:06 Pulse Rate 120 H 11/17/23 20:15 Respiratory Rate 18 11/17/23 20:15 Blood Pressure 119/80 11/17/23 20:15 Pulse Oximetry 94 11/17/23 20:15 Oxygen Delivery Me thod Room Air 11/17/23 17:06 MDM - General Adult Medical Decision Making Patient presents with constipation CT scan showed no obstruction we will give him a suppository along with lactulose prescribed MiraLAX he is to follow-up with PCP return if worsening Medical Records I reviewed the patient's medical records. Lab Data I reviewed the patient's lab results. 11/17/23 18:31 11/17/23 18:31 Radiology Impressions Abdomen/Pelvis CT 11/17/23 18:11 IMPRESSION: 1. No bowel obstruction. Large stool burden. 2. Severe atherosclerotic disease. COMMENTS: Consistent with the [employer]'s Incidental Findings Committee white paper (J Am Nikolay Radiol 2018): Any incidental renal lesion less than 1 cm or classified as too small to characterize, or any incidental cystic renal lesion characterized as simple-appearing, is likely benign. No follow-up imaging is recommended for these lesions per consensus recommendations based on imaging criteria. Laboratory Results WBC 5.10 10^3/uL (3.29-11.43) 11/17/23 18:31 RBC 3.01 10^6/uL (3.85-5.65) L 11/17/23 18:31 Hgb 9.30 g/dL (11.27-16.99) L 11/17/23 18:31 Hct 29.4 % (37-53) L 11/17/23 18:31 MCV 97.7 fl (82-101) 11/17/23 18: MCH 30.9 pg (27-33) 11/17/23 18: MCHC 31.6 g/dL (30-55) 11/17/23 18: RDW 15.8 % (12.1-15.1) H 11/17/23 18:31 Plt Count 171 10^3/cmm (157-399) 11/17/23 18: MPV 10.0 fL (7.4-10.4) 11/17/23 18: Neut % (Auto) 58.4 % 11/17/23 18: Lymph % (Auto) 24.3 % 11/17/23 18: [place] % (Auto) 14.7 % 11/17/23 18: Eos % (Auto) 1.4 % 11/17/23 18: Baso % (Auto) 0.6 % 11/17/23 18: Neut # (Auto) 2.98 10^3/uL (1.8-7.7) 11/17/23 18: Lymph # (Auto) 1.2 10^3/uL (0.8-4.8) 11/17/23 18: [place] # (Auto) 0.8 10^3/uL (0.2-0.9) 11/17/23 18: Eos # (Auto) 0.1 10^3/uL (0.0-0.8) 11/17/23 18: Baso # (Auto) 0.0 10^3/uL (0.0-0.1) 11/17/23 18: Nucleated RBC % (auto) 0 % 11/17/23 18: Nucleated RBCs # 0.0 /100WBC 11/17/23 18: Sodium 133 mmol/L (136-145) L 11/17/23 18: Potassium 4.1 mmol/L (3.5-5.1) 11/17/23 18: Chloride 98 mmol/L (98-107) 11/17/23 18: Carbon Dioxide 27 mmol/L (22-29) 11/17/23 18: Anion Gap 12.1 (5-19) 11/17/23 18: BUN 17 mg/dL (8-23) 11/17/23 18: Creatinine 0.9 mg/dL (0.7-1.2) 11/17/23 18: GFR Calculation Not Reportable 11/17/23 18: Glucose 97 mg/dL (65-115) 11/17/23 18: Calculated Osmolality 277 mOsm/kg (285-295) L 11/17/23 18:31 Calcium 8.6 mg/dL (8.5-10.5) 11/17/23 18:31 Total Bilirubin 0.7 mg/dL (0.15-1.2) 11/17/23 18:31 AST 17 U/L (0-40) 11/17/23 18:31 ALT 12 U/L (0-41) 11/17/23 18:31 Alkaline Phosphatase 35 U/L (40-130) L 11/17/23 18:31 Total Protein 7.3 g/dL (6.6-8.7) 11/17/23 18:31 Albumin 3.7 g/dL (3.5-5.2) 11/17/23 18:31 Globulin 3.6 g/dL (1.3-4.6) 11/17/23 18:31 All radiology interpretation(s) finalized by discharge Discharge Plan Discharge Patient Disposition: Home Clinical Impression: Constipation Condition: Stable Prescriptions: New polyethylene glycol 3350 [Miralax] 17 gram powder in packet 17 g PO DAILY PRN (Reason: constipation) Qty: 14 0RF No Action Cardizem CD 120 mg capsule,extended release 24hr 120 mg PO DAILY Qty: 90 3RF potassium chloride 20 mEq tablet extended release 20 meq PO DAILY PRN (Reason: lasix) 30 Days Qty: 30 5RF Eliquis 5 mg tablet 5 mg PO BID Qty: 180 3RF furosemide [Lasix] 20 mg tablet 40 mg PO QAM Qty: 60 1RF Discharge Orders: Discharge ED (Routine); Ordered 11/17/23 Ordered By: Yinka Reynoso Referrals: Kristen Holguin MD [Primary Care Provider] - Discharge Diet: Advance as tolerated Discharge Activity: Resume usual activity Patient Instructions: Constipation (ED) Coding Level of Care Code ED [place]ose Hunter for Maya Warner
[2023-11-17 18:59] LABS: Alanine Aminotransferase 12 U/L (0-41); Albumin Level 3.7 g/dL (3.5-5.2); Alkaline Phosphatase 35 U/L (40-130); Anion Gap 12.1 (5-19); Aspartate Amino Transferase 17 U/L (0-40); Blood Urea Nitrogen 17 mg/dL (8-23); Calcium 8.6 mg/dL (8.5-10.5); Carbon Dioxide 27 mmol/L (22-29); Chloride 98 mmol/L (98-107); Globulin 3.6 g/dL (1.3-4.6); Glucose 97 mg/dL (65-115); Osmolality Calculated 277 mOsm/kg (285-295); Potassium 4.1 mmol/L (3.5-5.1); Sodium 133 mmol/L (136-145); Total Bilirubin 0.7 mg/dL (0.15-1.2); Total Protein 7.3 g/dL (6.6-8.7)
[2023-11-17] MEDS: iohexol 350 mg/mL 500 mL Btl (per mL) IV (19:39)
[2023-11-17 19:46] VITALS: BP 137/87; PULSE 109; RESP 20; O2SAT 100
[2023-11-17 20:15] VITALS: BP 119/80; PULSE 120; RESP 18; O2SAT 94
[2023-11-17] MEDS: glycerin adult supp 1 EACH PR (22:04)
[2023-11-17 22:13] VITALS: BP 125/98; PULSE 130; RESP 18; O2SAT 100
== END 2023-11-17 22:17 | disposition home or self-care (01) ==
PROVIDERS: Emergency Provider Emergency Medicine; PCP Family Medicine
DX: K59.00 Constipation, unspecified (principal); Z79.01 Long term (current) use of anticoagulants; Z87.891 Personal history of nicotine dependence; I70.90 Unspecified atherosclerosis; K56.7 Ileus, unspecified
CPT/HCPCS: 74021; 74177; 80053; 85025; 99285; Q9967

== ENCOUNTER → 2023-11-24 14:37 | Outpatient (BNVA) | payer MEDICARE, SELFPAY | PROVIDERS: PCP Family Medicine; Visit Provider Family Medicine | DX: K59.00 Constipation, unspecified (principal); I50.30 Unspecified diastolic (congestive) heart failure; I48.91 Unspecified atrial fibrillation | CPT/HCPCS: 80048; 83880 ==

== ENCOUNTER → 2023-12-21 09:19 | Outpatient (BNVA) | payer MEDICARE, SELFPAY | PROVIDERS: PCP Family Medicine; Visit Provider Internal Medicine Cardiovascular Disease | DX: I50.30 Unspecified diastolic (congestive) heart failure (principal); R60.9 Edema, unspecified; I48.91 Unspecified atrial fibrillation | CPT/HCPCS: 80048; 83880 ==

== ENCOUNTER → 2024-04-24 14:00 | Outpatient (BNVA) | payer MEDICARE, SELFPAY | PROVIDERS: PCP Family Medicine; Visit Provider Internal Medicine Cardiovascular Disease | DX: I48.91 Unspecified atrial fibrillation (principal); I50.30 Unspecified diastolic (congestive) heart failure; Z79.01 Long term (current) use of anticoagulants; R06.02 Shortness of breath; D64.9 Anemia, unspecified; N18.9 Chronic kidney disease, unspecified; M79.89 Other specified soft tissue disorders; D50.8 Other iron deficiency anemias | CPT/HCPCS: 36415; 80048; 83880; 84443; 85025; 99214 ==

== ENCOUNTER → 2024-05-26 10:22 | Outpatient (BNVA) | payer MEDICARE, SELFPAY | PROVIDERS: PCP Family Medicine; Visit Provider Internal Medicine Cardiovascular Disease | DX: I48.91 Unspecified atrial fibrillation (principal); I50.30 Unspecified diastolic (congestive) heart failure; E03.9 Hypothyroidism, unspecified | CPT/HCPCS: 84443 ==

== ENCOUNTER → 2024-07-10 12:59 | Outpatient (BNVA) | payer MEDICARE, SELFPAY | PROVIDERS: PCP Family Medicine; Visit Provider Internal Medicine Cardiovascular Disease | DX: E03.9 Hypothyroidism, unspecified (principal) | CPT/HCPCS: 84439; 84443 ==

== ENCOUNTER → 2024-10-25 10:53 | Outpatient (BNVA) | payer MEDICARE, SELFPAY | PROVIDERS: PCP Family Medicine; Visit Provider Nurse Practitioner Family | DX: I48.91 Unspecified atrial fibrillation (principal); I50.30 Unspecified diastolic (congestive) heart failure; M79.89 Other specified soft tissue disorders; D50.8 Other iron deficiency anemias; Z79.01 Long term (current) use of anticoagulants; Z87.891 Personal history of nicotine dependence | CPT/HCPCS: 99213 ==

== ENCOUNTER → 2025-02-27 14:34 | Outpatient (BNVA) | payer MEDICARE, SELFPAY | PROVIDERS: PCP Nurse Practitioner Family; Visit Provider Nurse Practitioner Family | DX: K59.00 Constipation, unspecified (principal); I48.91 Unspecified atrial fibrillation; I50.30 Unspecified diastolic (congestive) heart failure | CPT/HCPCS: 80053; 80061; 84443; 85025 ==

== ENCOUNTER → 2025-03-13 13:26 | Outpatient (BNVA) | payer MEDICARE, SELFPAY | PROVIDERS: PCP Nurse Practitioner Family; Visit Provider Podiatrist Foot & Ankle Surgery | DX: I73.9 Peripheral vascular disease, unspecified (principal); L60.3 Nail dystrophy | CPT/HCPCS: 11721; 99203 ==

== ENCOUNTER → 2025-05-02 14:16 | Outpatient (BNVA) | payer MEDICARE, SELFPAY | PROVIDERS: PCP Nurse Practitioner Family; Visit Provider Internal Medicine Cardiovascular Disease | DX: I48.20 Chronic atrial fibrillation, unspecified (principal); Z79.01 Long term (current) use of anticoagulants; Z87.891 Personal history of nicotine dependence; I50.30 Unspecified diastolic (congestive) heart failure; D64.9 Anemia, unspecified; M79.89 Other specified soft tissue disorders; R06.02 Shortness of breath | CPT/HCPCS: 99214 ==

== ENCOUNTER → 2025-05-04 10:38 | Outpatient (BNVA) | payer MEDICARE, SELFPAY | PROVIDERS: PCP Nurse Practitioner Family; Visit Provider Internal Medicine Cardiovascular Disease | DX: R06.02 Shortness of breath (principal) | CPT/HCPCS: 80048; 83880 ==

== ENCOUNTER → 2025-06-06 12:54 | Outpatient (BNVA) | payer MEDICARE, SELFPAY | PROVIDERS: PCP Nurse Practitioner Family; Visit Provider Internal Medicine Cardiovascular Disease | DX: I50.30 Unspecified diastolic (congestive) heart failure (principal); I48.20 Chronic atrial fibrillation, unspecified; R06.02 Shortness of breath | CPT/HCPCS: 80048; 83880 ==

== ENCOUNTER → 2025-06-19 14:12 | Outpatient (BNVA) | payer MEDICARE, SELFPAY | PROVIDERS: PCP Nurse Practitioner Family; Visit Provider Podiatrist Foot & Ankle Surgery | DX: I73.9 Peripheral vascular disease, unspecified (principal); L60.3 Nail dystrophy; L60.8 Other nail disorders | CPT/HCPCS: 11721 ==

== ENCOUNTER → 2025-07-02 13:57 | Outpatient (BNVA) | payer MEDICARE, SELFPAY | PROVIDERS: PCP Nurse Practitioner Family; Visit Provider Internal Medicine Cardiovascular Disease | DX: I48.20 Chronic atrial fibrillation, unspecified (principal) | CPT/HCPCS: 80048; 83880 ==

== ENCOUNTER 2025-07-09 15:56 | Emergency (ER) | payer MEDICARE, SELFPAY ==
[2025-07-09] VITALS (7 sets, daily range): BP systolic 84–112; BP diastolic 51–72; PULSE 72–86; RESP 16; TEMP 36.5; O2SAT 95–100
--- NOTE | 2025-07-09 16:17 | ED_ITS ---
HPI - Recheck/Abnormal Lab/Rx 2 General: Chief Complaint: Recheck/Abnormal Lab/Rx Stated Complaint: Adnormal Labs Time Seen by Provider: 07/09/25 16:01 History of Present Illness: 85-year-old man with a history of diasto lic congestive heart failure, atrial fibrillation, chronic anticoagulation on Eliquis, anemia, hypothyroidism and skin cancer who presents to the emergency room at the direction of Dr. Gaffney in cardiology. Apparently they had some labs drawn last week and they were called today and told to come back to the hospital. They are not sure what lab it was. My review of the chart it appears likely the elevated proBNP. He is relatively asymptomatic. He has no swelling in his legs. Family states they thought that the doctors thought maybe it was in his lungs. He says he does not feel more short of breath than usual but he does have some exertional dyspnea. No chest pain. No altered mental status. No cough. No fevers. Related Data Previous Rx's ?Medication ?Instructions ?Recorded polyethylene glycol 3350 17 gram 17 g PO DAILY PRN con stipation #14 11/17/23 oral powder packet (Miralax) ea apixaban 5 mg tablet (Eliquis) 5 mg PO BID #180 tabs 1 potassium chloride 20 mEq 20 meq PO BID lasix #180 tab s 12/19/24 tablet,extended release furosemide 20 mg tablet See Rx Instructions .Route 0 02/01/25 .COMPLEX #60 tabs levothyroxine 25 mcg tablet See Rx Instructions .Route 04/27/25 .COMPLEX #30 tabs spironolactone 25 mg tablet 25 mg PO DAILY #90 tabs diltiazem HCl 90 mg 90 mg PO ONCE #90 caps 06/12 capsule,extended release 12 hr Allergies Allergy/AdvReac Type Severity Reaction Status Date / Time No Known Allergies Allergy Verified 06/19/25 14:30 [facility] ED 2 PFS: Medical History (Updated 07/09/25 @ 18:51 by Jasmin Sosa MD) Diastolic heart failure 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 Social History Smoking and tobacco/nicotine status: former use of tobacco/nicotine Quit status (tobacco/nicotine): has quit using Second hand smoke exposure: No Alcohol intake: current Alcohol intake frequency: 0-2 Drinks per Day Adopted: No Household members: none Housing: House Course 2 Vital Signs: Vital signs: Vital Signs Temperature 97.7 F 07/09/25 16:04 Pulse Rate 72 07/09/25 16:21 Respiratory Rate 16 07/09/25 16:21 Blood Pressure 103/62 07/09/25 18:06 Pulse Oximetry 95 07/09/25 17:14 Oxygen Delivery Me thod Room Air 07/09/25 17:14 MDM - Recheck/Abnormal Lab/Rx Medical Decision Making Medical decision making: Differential diagnosis including but not limited to and based on the above HPI, review of systems and physical exam: for patient with elevated proBNP: Congestive heart failure. Kidney failure. DVT / Pulmonary embolism. Protein malnutrition. Cirrhosis. Orders placed to evaluate differential diagnosis based on the above differential, HPI and physical exam EKG: Time 1628. Rate 107. atrial fibrillation with rapid ventricular response, No ST-T changes, no ectopy, This was reviewed and interpreted by myself the ER physician at 1628. Heart rate has been in the 70s other than that initial EKG. Repeat EKG: Rate 91. Time 1842. Atrial fibrillation with controlled rate, No ST-T changes, no ectopy, This was reviewed and interpreted by myself the ER physician at 1850. Rate has decreased by 18 bpm. Also on the monitor he has been running in the 70s. Lab Review: Laboratory results were reviewed and interpreted by myself the emergency room physician. No leukocytosis. No anemia. BUN and creatinine are stable at 41.3. proBNP is still around 3000 but he has no evidence of congestive heart failure exacerbation. No swelling in his legs. No orthopnea. Chest x-ray is clear. Chest x-ray: No acute process. No infiltrate. No pneumothorax. This was reviewed and interpreted by myself the emergency room physician. I also reviewed the radiology report. I reviewed the patient's medical record. 85-year-old man with a history of diastolic congestive heart failure, atrial fibrillation, chronic anticoagulation on Eliquis, anemia, hypothyroidism and skin cancer. I reviewed most recent cardiology note from about a week ago. At that time patient had about 1+ edema. This seems to have improved. Labs were ordered at that time. Reexamination: Patient remained stable. No increased work of breathing. No altered mental status. No focal motor deficits. Assessment and plan: Congestive heart failure without acute exacerbation - Discharged home - Discussed plan with patient. Answered any questions. - Evaluation and treatment of this problem were appropriate in the emergency setting. Lab Data 07/09/25 17:07 07/09/25 17:07 Radiology Impressions Chest X-Ray 07/09/25 16:19 IMPRESSION: No definite acute infiltrate or effusion. Laboratory Results WBC 5.80 10^3/uL (3.29-11.43) 07/09/25 17:07 RBC 3.73 10^6/uL (3.85-5.65) L 07/09/25 17:07 Hgb 11.30 g/dL (11.27-16.99) 07/09/25 17:07 Hct 35.4 % (37-53) L 07/09/25 17:07 MCV 94.9 fl (82-101) 07/09/25 17:07 MCH 30.3 pg (27-33) 07/09/25 17:07 MCHC 31.9 g/dL (30-55) 07/09/25 17:07 RDW 14.5 % (12.1-15.1) 07/09/25 17:07 Plt Count 202 10^3/cmm (157-399) 07/09/25 17:07 MPV 9.6 fL (7.4-10.4) 07/09/25 17:07 Neut % (Auto) 70.3 % 07/09/25 17:07 Lymph % (Auto) 14.5 % 07/09/25 17:07 [place] % (Auto) 12.1 % 07/09/25 17:07 Eos % (Auto) 1.2 % 07/09/25 17:07 Baso % (Auto) 0.5 % 07/09/25 17:07 Neut # (Auto) 4.08 10^3/uL (1.8-7.7) 07/09/25 17:07 Lymph # (Auto) 0.8 10^3/uL (0.8-4.8) 07/09/25 17:07 [place] # (Auto) 0.7 10^3/uL (0.2-0.9) 07/09/25 17:07 Eos # (Auto) 0.1 10^3/uL (0.0-0.8) 07/09/25 17:07 Baso # (Auto) 0.0 10^3/uL (0.0-0.1) 07/09/25 17:07 Nucleated RBC % (auto) 0 % 07/09/25 17:07 Nucleated RBCs # 0.0 /100WBC 07/09/25 17:07 Sodium 133 mmol/L (136-145) L 07/09/25 17:07 Potassium 4.6 mmol/L (3.5-5.1) 07/09/25 17:07 Chloride 95 mmol/L (98-107) L 07/09/25 17:07 Carbon Dioxide 26 mmol/L (22-29) 07/09/25 17:07 Anion Gap 16.6 (5-19) 07/09/25 17:07 BUN 40 mg/dL (8-23) H 07/09/25 17:07 Creatinine 1.3 mg/dL (0.7-1.2) H 07/09/25 17:07 GFR Calculation Not Reportable 07/09/25 17:07 Glucose 92 mg/dL (65-115) 07/09/25 17:07 Calculated Osmolality 285 mOsm/kg (285-295) 07/09/25 17:07 Calcium 8.8 mg/dL (8.5-10.5) 07/09/25 17:07 Total Bilirubin 0.5 mg/dL (0.15-1.2) 07/09/25 17:07 AST 14 U/L (0-40) 07/09/25 17:07 ALT 9 U/L (0-41) 07/09/25 17:07 Alkaline Phosphatase 29 U/L (40-130) L 07/09/25 17:07 Troponin T Baseline 45 ng/L (0-15) H 07/09/25 17:07 NT-Pro-B Natriuret Pep 3672 pg/mL (0-450) H 07/09/25 17:07 Total Protein 6.9 g/dL (6.6-8.7) 07/09/25 17:07 Albumin 3.8 g/dL (3.5-5.2) 07/09/25 17:07 Globulin 3.1 g/dL (1.3-4.6) 07/09/25 17:07 All radiology interpretation(s) finalized by discharge Discharge Plan Discharge Patient Disposition: Home Clinical Impression: Diastolic heart failure Qualifiers: Heart failure chronicity: unspecified Qualified Code(s): I50.30 - Unspecified diastolic (congestive) heart failure Condition: Stable Prescriptions: No Action Eliquis 5 mg tablet 5 mg PO BID Qty: 180 3RF potassium chloride 20 mEq tablet extended release 20 meq PO BID Qty: 180 3RF furosemide 20 mg tablet See Rx Instructions .ROUTE .COMPLEX Qty: 60 6RF Dose Instruction: TAKE TWO TABLETS BY MOUTH EVERY MORNING Rx Instructions: TAKE TWO TABLETS BY MOUTH EVERY MORNING levothyroxine 25 mcg tablet See Rx Instructions .ROUTE .COMPLEX Qty: 30 4RF Dose Instruction: TAKE ONE TABLET BY MOUTH DAILY Rx Instructions: TAKE ONE TABLET BY MOUTH DAILY spironolactone 25 mg tablet 25 mg PO DAILY Qty: 90 1RF diltiazem HCl 90 mg capsule,extended release 12 hr 90 mg PO ONCE Qty: 90 3RF Miralax 17 gram powder in packet 17 g PO DAILY PRN (Reason: constipation) Qty: 14 0RF Discharge Orders: Discharge ED (Routine); Ordered 07/09/25 Ordered By: Jasmin Sosa Referrals: Mali Ferguson FNP [Primary Care Provider, Family Practice] Discharge Diet: Usual diet Discharge Activity: Increase activity as tolerated Patient Instructions: Opioid Safety, Pain Management, Patient Portal & Thania Instructions Activity Restrictions/Additional Instructions: Thank you for choosing [facility] for your healthcare needs today. You have been screened and evaluated and felt safe for discharge. Health conditions do change or evolve sometimes and as such it is important that you follow up with your Primary Doctor to be re checked, 3-5 days is a general good time frame for follow up. You are always welcome to return to the ED for re assessment if your symptoms are worsening or you have new concerns Print Language: Estonian Coding Level of Care Code ED [employer] Oven Operator for Maya Warner
--- NOTE | 2025-07-09 16:19 | ECG_ITS ---
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 Measurements Intervals [place] Rate: 107 P: 0 [place]: 0 QRS: -63 QRSD: 90 T: 67 QT: 351 QTc: 470 Interpretive Statements ATRIAL FIBRILLATION WITH RAPID VENTRICULAR RESPONSE LEFT AXIS DEVIATION [QRS AXIS < -30] POSSIBLE RIGHT VENTRICULAR CONDUCTION DELAY [RSR (QR) IN V1/V2] SEPTAL MYOCARDIAL INFARCTION , PROBABLY OLD [40+ ms Q WAVE IN V1/V2] Compared to ECG 07/21/2023 14:05:56 Myocardial infarct finding now present T-wave abnormality no longer present Possible ischemia no longer present Electronically Signed On 07-09-2025 20:17:31 CDT by Luis Miguel Gaffney M.D. [email or web address]
--- NOTE | 2025-07-09 16:19 | XRR_ITS ---
PROCEDURE INFORMATION: Exam: XR Chest Exam date and time: 07/09/2025 4:24 PM Age: 85 years old Clinical indication: Other: Swelling; Abnormal labs TECHNIQUE: Imaging protocol: Radiologic exam of the chest. Views: 1 view. COMPARISON: CT chest w con* [id number] 07/21/2023 2:37 PM FINDINGS: Lungs: Unremarkable. No consolidation. Pleural spaces: Unremarkable. No pleural effusion. No pneumothorax. Heart/Mediastinum: Unremarkable. No cardiomegaly. Vasculature: Aor aortic atherosclerosis. Bones/joints: Probable old right lower rib fractures. Mild degenerative changes of the AC joints. XR/XR chest 1V portable [id number] IMPRESSION: No definite acute infiltrate or effusion.
[2025-07-09 17:46] LABS: Hematocrit 35.4 % (37-53); Hemoglobin 11.30 g/dL (11.27-16.99); Mean Corpuscular HGB Conc 31.9 g/dL (30-55); Mean Corpuscular Hemoglobin 30.3 pg (27-33); Mean Corpuscular Volume 94.9 fl (82-101); Nucleated Red Blood Cells % 0 %; Platelet Count 202 10^3/cmm (157-399); Red Blood Count 3.73 10^6/uL (3.85-5.65); White Blood Count 5.80 10^3/uL (3.29-11.43)
[2025-07-09 18:10] LABS: Troponin(5th) Baseline 45 ng/L (0-15)
[2025-07-09 18:15] LABS: Alanine Aminotransferase 9 U/L (0-41); Albumin Level 3.8 g/dL (3.5-5.2); Alkaline Phosphatase 29 U/L (40-130); Anion Gap 16.6 (5-19); Aspartate Amino Transferase 14 U/L (0-40); Blood Urea Nitrogen 40 mg/dL (8-23); Calcium 8.8 mg/dL (8.5-10.5); Carbon Dioxide 26 mmol/L (22-29); Chloride 95 mmol/L (98-107); Creatinine Clr Calc Pharmacy 39.1276; Globulin 3.1 g/dL (1.3-4.6); Glucose 92 mg/dL (65-115); NT Pro B Type Natriuretic Pept 3672 pg/mL (0-450); Osmolality Calculated 285 mOsm/kg (285-295); Potassium 4.6 mmol/L (3.5-5.1); Sodium 133 mmol/L (136-145); Total Protein 6.9 g/dL (6.6-8.7)
--- NOTE | 2025-07-09 18:42 | ECG_ITS ---
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 Measurements Intervals Corder Rate: 91 P: 0 IL: 0 QRS: -32 QRSD: 88 T: 70 QT: 388 QTc: 479 Interpretive Statements ATRIAL FIBRILLATION LEFT AXIS DEVIATION [QRS AXIS < -30] POSSIBLE RIGHT VENTRICULAR CONDUCTION DELAY [RSR (QR) IN V1/V2] SEPTAL MYOCARDIAL INFARCTION , PROBABLY OLD [40+ ms Q WAVE IN V1/V2] Compared to ECG 07/09/2025 16:28:30 No significant changes Electronically Signed On 07-09-2025 20:24:32 CDT by Luis Miguel Gaffney M.D. [email or web address]
== END 2025-07-09 19:13 | disposition home or self-care (01) ==
PROVIDERS: Emergency Provider Emergency Medicine; PCP Nurse Practitioner Family
DX: I50.30 Unspecified diastolic (congestive) heart failure (principal); R79.89 Other specified abnormal findings of blood chemistry; I48.91 Unspecified atrial fibrillation; D64.9 Anemia, unspecified; E03.9 Hypothyroidism, unspecified; R60.9 Edema, unspecified; Z79.01 Long term (current) use of anticoagulants
CPT/HCPCS: 36415; 71045; 80053; 83880; 84484; 85025; 93005; 99285

== ENCOUNTER 2025-08-03 04:33 | Inpatient (IN) | payer MEDICARE, SELFPAY ==
[2025-08-03] VITALS (25 sets, daily range): BP systolic 98–130; BP diastolic 66–92; PULSE 92–140; RESP 14–40; TEMP 36.7–37; O2SAT 90–100; BMI 14.8
--- NOTE | 2025-08-03 04:48 | CTR_ITS ---
PROCEDURE INFORMATION: Exam: CT Head Without Contrast Exam date and time: 08/03/2025 5:14 AM Age: 85 years old Clinical indication: Injury or trauma; Fall; Blunt trauma (contusions or hematomas) TECHNIQUE: Imaging protocol: Computed tomography of the head without contrast. Radiation optimization: All CT scans at this facility use at least one of these dose optimization techniques: automated exposure control; mA and/or kV adjustment per patient size (includes targeted exams where dose is matched to clinical indication); or iterative reconstruction. COMPARISON: CT head wo con* [id number] 12/03/2022 6:16 PM RADIATION DOSE METRICS: Total DLP (mGy-cm): 1279.3 FINDINGS: Brain: Age-related cortical volume loss. No hemorrhage. Periventricular and subcortical white matter hypodensities likely represent chronic small vessel ischemic changes. No mass effect. Cerebral ventricles: No ventriculomegaly. Paranasal sinuses: Mucosal thickening and fluid layering most pronounced in the right maxillary sinus but also in the right frontal sinus and right ethmoid air cells Mastoid air cells: Visualized mastoid air cells are well aerated. Bones: Unremarkable. No acute fracture. Soft tissues: Unremarkable. CT/CT head wo con* [id number] IMPRESSION: 1. No acute intracranial abnormality. 2. Right-sided paranasal sinus disease.
--- NOTE | 2025-08-03 04:48 | XRR_ITS ---
PROCEDURE INFORMATION: Exam: XR Chest Exam date and time: 08/03/2025 4:49 AM Age: 85 years old Clinical indication: Injury or trauma; Fall; Blunt trauma (contusions or hematomas) TECHNIQUE: Imaging protocol: Radiologic exam of the chest. Views: 1 view. COMPARISON: CR XR chest 1V portable [id number] 07/09/2025 4:24 PM FINDINGS: Lungs: Unremarkable. No consolidation. Pleural spaces: Unremarkable. No pleural effusion. No pneumothorax. Heart/Mediastinum: Unremarkable. No cardiomegaly. Vasculature: Atherosclerotic aortic plaques. Bones/joints: Unremarkable. Soft tissues: Skin fold over the right lateral chest. XR/XR chest 1V portable [id number] IMPRESSION: No acute findings.
--- NOTE | 2025-08-03 04:49 | ED_ITS ---
Documented by User: Yinka Reynoso MD 08/03/25 18:42 HPI - Fall 2 General: Chief Complaint: ER Hold Stated Complaint: fall Time Seen by Provider: 08/03/25 04:46 Source: patient and EMS Mode of arrival: EMS Limitations: no limitations History of Present Illness: 85-year-old male lives home alone rea t in by EMS after a fall. Patient was last seen sometime yesterday found this morning on the floor covered in urine and feces. Patient here states is not really remember what happened. Has had some confusion as well unsure what his baseline is. Does have some bruising to his head and face. He denies any chest pain or abdominal pain. Related Data Home Medications ?Medication ?Instructions ?Recorded ?Confirmed psyllium husk (with sugar) 3 1 tbsp PO DAILY constipat ion 08/03/25 08/03/25 gram/7 gram oral powder (Metamucil Free (with sugar)) Previous Rx's ?Medication ?Instructions ?Recorded polyethylene glycol 3350 17 gram 17 g PO DAILY PRN con stipation #14 11/17/23 oral powder packet (Miralax) ea potassium chloride 20 mEq 20 meq PO BID lasix #180 tab s 12/19/24 tablet,extended release levothyroxine 25 mcg tablet See Rx Instructions .Route 04/27/25 .COMPLEX #30 tabs spironolactone 25 mg tablet 25 mg PO DAILY #90 tabs diltiazem HCl 90 mg 90 mg PO ONCE #90 caps 06/12 capsule,extended release 12 hr furosemide 20 mg tablet See Rx Instructions .Route 1 .COMPLEX #180 tabs apixaban 5 mg tablet (Eliquis) 5 mg PO BID #180 tabs 1 Allergies Allergy/AdvReac Type Severity Reaction Status Date / Time No Known Allergies Allergy Verified 06/19/25 14:30 [facility] ED 2 [facility]: Medical History (Updated 08/03/25 @ 12:51 by Carlos Manuel Solares MD) Diastolic heart failure 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 Social History Smoking and tobacco/nicotine status: former use of tobacco/nicotine Quit status (tobacco/nicotine): has quit using Second hand smoke exposure: No Alcohol intake: current Alcohol intake frequency: 0-2 Drinks per Day Adopted: No Household members: none Housing: House Physical Exam 2 Const: COMMON NORMALS: alert; negative for patient oriented x3 ORIENTATION/CONSCIOUSNESS: Yes oriented to person; not oriented to place and not oriented to time HENMT: COMMON NORMALS: atraumatic HEAD & SCALP: atraumatic OTHER: Contusion noted to forehead Eye: COMMON NORMALS: Equal, round and reactive pupils present and EOMs intact bilaterally PUPIL: Yes Equal, round and reactive pupils present Neck/C-Spine: COMMON NORMALS: full ROM and supple Chest: COMMONS NORMALS: normal inspection of the chest and normal palpation of entire chest wall Resp: COMMON NORMALS: normal respiratory effort, No retractions, No use of accessory muscles and clear to auscultation bilaterally AUSCULTATION: clear to auscultation bilaterally Cardio: COMMON NORMALS: No murmurs present (Cardio) RATE: tachycardic R HYTHM: abnormal rhythm irregularly irregular GI: COMMON NORMALS: Normal to inspection, nondistended, normoactive bowel sounds present, Soft to palpation, non-tender and no masses PALPATION: Yes Soft to palpation Extremity: COMMON NORMALS: normal to inspection and full ROM Neuro: COMMON NORMALS: moves all extremities and no focal motor deficits; negative for patient oriented x3 SENSORIUM/ORIENTATION: Yes alert, Yes oriented to person, No oriented to place and No oriented to time Psych: COMMON NORMALS: Normal thought process present and cooperative T HOUGHT PROCESS: Normal thought process present Skin: COMMON NORMALS: no rashes or lesions noted and no wounds GENERAL SKIN EXAM: no rashes or lesions noted Course 2 Vital Signs: Vital signs: Vital Signs Temperature 98.0 F 08/03/25 16:00 Pulse Rate 98 08/03/25 16:00 Respiratory Rate 31 H 08/03/25 16:00 Blood Pressure 98/70 08/03/25 16:00 Pulse Oximetry 90 08/03/25 16:00 Oxygen Delivery Me thod Room Air 08/03/25 16:00 MDM - Fall Medical Records I reviewed the patient's medical records. Lab Data I reviewed the patient's lab results. 08/03/25 05:33 08/03/25 05:33 Radiology Impressions Chest X-Ray 08/03/25 04:48 IMPRESSION: No acute findings. Head CT 08/03/25 04:48 IMPRESSION: 1. No acute intracranial abnormality. 2. Right-sided paranasal sinus disease. Face CT 08/03/25 04:50 IMPRESSION: 1. No acute osseous findings. 2. Mild subcutaneous fat stranding along the chin could represent contusion. 3. Right-sided paranasal sinus disease Cervical Spine CT 08/03/25 05:15 IMPRESSION: 1. No acute cervical spine fracture. 2. Trace left mastoid effusion. Pelvis X-Ray 08/03/25 05:30 IMPRESSION: 1. No definite acute osseous findings. CT could be considered for further evaluation if warranted. 2. Large colonic stool. Correlate for constipation. Carotid Doppler Study 08/03/25 11:28 IMPRESSION: 1. Bilateral common carotid artery generalized intimal thickening and mild carotid bulb atheromatous calcific eccentric plaque with no hemodynamically significant (not greater than 50%) carotid artery or vertebral artery stenosis. 2. Bilateral vertebral artery antegrade flow of normal velocity flow direction. REFERENCES: SRU CRITERIA. The degree of internal carotid artery stenosis is based on criteria defined by the Society of Radiologists in Ultrasound (SRU). Normal is no stenosis. Mild is less than 50% stenosis. Moderate is 50-69% stenosis. Severe is greater than 69% stenosis to near occlusion. Near occlusion is a markedly narrowed lumen. Total occlusion is no detectable patent lumen. Zoey Javier, et al. Carotid Artery Stenosis: Medrano-Scale and Doppler US Diagnosis-Society of Radiologists in Ultrasound Consensus Conference. Radiology 2003; 229:340-346. Laboratory Results WBC 13.66 10^3/uL (3.29-11.43) H 08/03/25 05:33 RBC 3.58 10^6/uL (3.85-5.65) L 08/03/25 05:33 Hgb 10.90 g/dL (11.27-16.99) L 08/03/25 05:33 Hct 33.6 % (37-53) L 08/03/25 05:33 MCV 93.9 fl (82-101) 08/03/25 05:33 MCH 30.4 pg (27-33) 08/03/25 05:33 MCHC 32.4 g/dL (30-55) 08/03/25 05:33 RDW 14.5 % (12.1-15.1) 08/03/25 05:33 Plt Count 205 10^3/cmm (157-399) 08/03/25 05:33 MPV 9.1 fL (7.4-10.4) 08/03/25 05:33 Neut % (Auto) 84.1 % 08/03/25 05:33 Lymph % (Auto) 4.5 % 08/03/25 05:33 [place] % (Auto) 10.2 % 08/03/25 05:33 Eos % (Auto) 0.1 % 08/03/25 05:33 Baso % (Auto) 0.1 % 08/03/25 05:33 Neut # (Auto) 11.50 10^3/uL (1.8-7.7) H 08/03/25 05:33 Lymph # (Auto) 0.6 10^3/uL (0.8-4.8) L 08/03/25 05:33 [place] # (Auto) 1.4 10^3/uL (0.2-0.9) H 08/03/25 05:33 Eos # (Auto) 0.0 10^3/uL (0.0-0.8) 08/03/25 05:33 Baso # (Auto) 0.0 10^3/uL (0.0-0.1) 08/03/25 05:33 Nucleated RBC % (auto) 0 % 08/03/25 05:33 Nucleated RBCs # 0.0 /100WBC 08/03/25 05:33 PT 18.40 SECONDS (12.1-14.9) H 08/03/25 05:33 INR 1.44 (0.8-1.2) H 08/03/25 05:33 Sodium 132 mmol/L (136-145) L 08/03/25 05:33 Potassium 5.0 mmol/L (3.5-5.1) 08/03/25 05:33 Chloride 93 mmol/L (98-107) L 08/03/25 05:33 Carbon Dioxide 23 mmol/L (22-29) 08/03/25 05:33 Anion Gap 21.0 (5-19) H 08/03/25 05:33 BUN 53 mg/dL (8-23) H 08/03/25 05:33 Creatinine 1.4 mg/dL (0.7-1.2) H 08/03/25 05:33 GFR Calculation Not Reportable 08/03/25 05:33 Glucose 141 mg/dL (65-115) H 08/03/25 05:33 Estimat Average Glucose 131 08/03/25 05:33 Hemoglobin A1c 6.2 % (4.0-6.0) H 08/03/25 05:33 Calculated Osmolality 291 mOsm/kg (285-295) 08/03/25 05:33 Calcium 9.9 mg/dL (8.5-10.5) 08/03/25 05:33 Magnesium 2.4 mg/dL (1.7-2.3) H 08/03/25 05:33 Iron 97 ug/dL (59-158) 08/03/25 05:33 Ferritin 103 ng/mL (30-400) 08/03/25 05:33 Total Bilirubin 1.1 mg/dL (0.15-1.2) 08/03/25 05:33 AST 54 U/L (0-40) H 08/03/25 05:33 ALT 20 U/L (0-41) 08/03/25 05:33 Alkaline Phosphatase 31 U/L (40-130) L 08/03/25 05:33 Creatine Kinase 1642 U/L (39-308) H* 08/03/25 05:33 Total Protein 7.5 g/dL (6.6-8.7) 08/03/25 05:33 Albumin 4.0 g/dL (3.5-5.2) 08/03/25 05:33 Globulin 3.5 g/dL (1.3-4.6) 08/03/25 05:33 Triglycerides 73 mg/dL (0-150) 08/03/25 05:33 Cholesterol 158 mg/dL (0-200) 08/03/25 05:33 LDL Cholesterol, Calc 89 mg/dL (50-129) 08/03/25 05:33 HDL Cholesterol 54 mg/dL (60-100) L 08/03/25 05:33 LDL/HDL Ratio 1.65 RATIO (0.00-3.22) 08/03/25 05:33 Cholesterol/HDL Ratio 2.93 mg/dL (1.0-5.00) 08/03/25 05:33 Procalcitonin 0.40 ng/mL (0-0.5) 08/03/25 05:33 TSH 4.14 uIU/mL (0.27-4.20) 08/03/25 05:33 Urine Color Yellow (Yellow) 08/03/25 04:55 Urine Appearance Clear (CLEAR) 08/03/25 04:55 Urine pH 7.0 (5-7) 08/03/25 04:55 Ur Specific [place] 1.014 (1.005-1.030) 08/03/25 04:55 Urine Protein Trace (Negative) A 08/03/25 04:55 Urine Glucose (UA) Negative (Normal) 08/03/25 04:55 Urine Ketones Negative (Negative) 08/03/25 04:55 Urine Blood 1+ (Negative) A 08/03/25 04:55 Urine Nitrate Negative (Negative) 08/03/25 04:55 Urine Bilirubin Negative (Negative) 08/03/25 04:55 Urine Urobilinogen 1.0 mg/dL (Negative) 08/03/25 04:55 Ur Leukocyte Esterase Negative (Negative) 08/03/25 04:55 Urine RBC 0-2 /hpf (0-2) 08/03/25 04:55 Urine WBC 0-5 /hpf (0-5) 08/03/25 04:55 Ur Squamous Epith Cells 0-5 /hpf (0-5) 08/03/25 04:55 Amorphous Sediment Not Reportable 08/03/25 04:55 Urine Bacteria None seen /hpf (NONE) 08/03/25 04:55 Hyaline Casts 7.42 /lpf 08/03/25 04:55 All radiology interpretation(s) finalized by discharge EKG Data EKG 1: I personally reviewed and interpreted this EKG as follows: EKG interpretation date: 08/03/25 EKG interpretation time: 04:52 Interpretation: afib with rvr hr [address] elevation qrs 82 qtc 383 Discharge Plan Discharge Patient Disposition: Admitted As Inpatient Admit Provider: Carlos Manuel Solares Clinical Impression: Rhabdomyolysis, Acute on chronic renal insufficiency, Fall, Facial contusion, Atrial fibrillation with rapid ventricular response Condition: Stable Coding Level of Care Code ED Counselor/Art Therapist for Chg Fwd Documented by User: Jasmin Sosa MD 08/03/25 07:42 HPI - Fall 2 General: Chief Complaint: ER Hold Stated Complaint: fall Time Seen by Provider: 08/03/25 04:46 Related Data Home Medications ?Medication ?Instructions ?Recorded ?Confirmed psyllium husk (with sugar) 3 1 tbsp PO DAILY constipat ion 08/03/25 08/03/25 gram/7 gram oral powder (Metamucil Free (with sugar)) Previous Rx's ?Medication ?Instructions ?Recorded polyethylene glycol 3350 17 gram 17 g PO DAILY PRN con stipation #14 11/17/23 oral powder packet (Miralax) ea potassium chloride 20 mEq 20 meq PO BID lasix #180 tab s 12/19/24 tablet,extended release levothyroxine 25 mcg tablet See Rx Instructions .Route 04/27/25 .COMPLEX #30 tabs spironolactone 25 mg tablet 25 mg PO DAILY #90 tabs diltiazem HCl 90 mg 90 mg PO ONCE #90 caps 06/12 capsule,extended release 12 hr furosemide 20 mg tablet See Rx Instructions .Route 1 .COMPLEX #180 tabs apixaban 5 mg tablet (Eliquis) 5 mg PO BID #180 tabs 1 Allergies Allergy/AdvReac Type Severity Reaction Status Date / Time No Known Allergies Allergy Verified 06/19/25 14:30 PFSH ED 2 PFSH: Medical History (Updated 08/03/25 @ 12:51 by Carlos Manuel Solares MD) Diastolic heart failure 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 Social History Smoking and tobacco/nicotine status: former use of tobacco/nicotine Quit status (tobacco/nicotine): has quit using Second hand smoke exposure: No Alcohol intake: current Alcohol intake frequency: 0-2 Drinks per Day Adopted: No Household members: none Housing: House Course 2 Vital Signs: Vital signs: Vital Signs Temperature 98.0 F 08/03/25 16:00 Pulse Rate 98 08/03/25 16:00 Respiratory Rate 31 H 08/03/25 16:00 Blood Pressure 98/70 08/03/25 16:00 Pulse Oximetry 90 08/03/25 16:00 Oxygen Delivery Me thod Room Air 08/03/25 16:00 MDM - Fall Medical Decision Making Patient care transitioned to nm at shift change. Workup had just been initiated. Medical decision making: Differential diagnosis for patient presenting with generalized weakness including but not limited to and based on the above HPI, review of systems and physical exam: Sepsis. Dehydration. Renal failure. Electrolyte abnormalities. Anemia. Congestive heart failure. Hypotension. Coronary syndrome. Hepatitis. Cirrhosis. Infections such as pneumonia, urinary tract infection, [place] illness, Cellulitis, Viral infections including influenza and Covid-19. Workup: labwork and lab/exam driven imaging ordered to evaluate, rule in and rule out above pathologies. EKG: Time 4:52 AM. Rate 141. Atrial fibrillation with rapid ventricular response, No ST-T changes, no ectopy, This was reviewed and interpreted by the ER physician 4:[address] head: No acute intracranial process. No intracranial hemorrhage, no evidence of infarct. No evidence of acute fracture. This was reviewed and interpreted by myself the emergency room physician. I also reviewed the radiology report. CT of the facial bones: No acute process. This was reviewed and interpreted by myself the emergency room physician. I also reviewed the radiology report. CT of the cervical spine: No fracture. Good alignment. No step-offs. This was reviewed and interpreted by myself the emergency room physician. I also reviewed the radiologist report. X-ray of the pelvis: No acute process. Constipation. This was reviewed and interpreted by myself the emergency room physician. I also reviewed the radiology report. Chest x-ray: No acute process. No infiltrate. No pneumothorax. This was reviewed and interpreted by myself the emergency room physician. I also reviewed the radiology report. Chest x-ray: No acute process. No infiltrate. No pneumothorax. This was reviewed and interpreted by myself the emergency room physician. I also reviewed the radiology report. Lab Review: Laboratory results were reviewed and interpreted by myself the emergency room physician. Mild leukocytosis with a white count of 13,000. No anemia. BUN and creatinine are slightly elevated at 53 and 1.4. This is slightly above his baseline. He does have some chronic kidney disease. Urinalysis is negative for infection. CK is fairly elevated at 1642. I reviewed the patient's medical record. 85-year-old man with a history of chronic anticoagulation on Eliquis, atrial fibrillation, hypothyroidism, anemia, constipation, diastolic congestive heart failure Reexamination: Patient is lying in the bed comfortable. Alert and oriented. He does have some bruising over his face. Some abrasions on his toes. No focal motor deficits at this time. Family is at bedside. He is still a bit tachycardic in the 1 teens. No oxygen requirement Consultation: I spoke with Dr. Espinoza who is on-call for the hospital service who agrees to admission. Assessment and plan: Fall rhabdomyolysis atrial fibrillation with rapid ventricular response Facial contusion Atrial fibrillation with rapid ventricular response ?2 L normal saline bolus. Amiodarone bolus. Amiodarone drip -I discussed the patient with the hospitalist on-call who is admitting the patient. - Discussed findings and plan with patient. Answered any questions. - All laboratory values were reviewed and interpreted personally by myself, the ER physician - All imaging was reviewed and interpreted personally by myself, the ER physician. - Evaluation and treatment of this problem were appropriate in the emergency setting Critical Care: -I spent a total of 42 minutes of critical care time managing the patient, independent of any other practitioner. -The time involved in the performance of separately reportable procedures was not counted towards critical care time. Lab Data 08/03/25 05:33 08/03/25 05:33 Radiology Impressions Chest X-Ray 08/03/25 04:48 IMPRESSION: No acute findings. Head CT 08/03/25 04:48 IMPRESSION: 1. No acute intracranial abnormality. 2. Right-sided paranasal sinus disease. Face CT 08/03/25 04:50 IMPRESSION: 1. No acute osseous findings. 2. Mild subcutaneous fat stranding along the chin could represent contusion. 3. Right-sided paranasal sinus disease Cervical Spine CT 08/03/25 05:15 IMPRESSION: 1. No acute cervical spine fracture. 2. Trace left mastoid effusion. Pelvis X-Ray 08/03/25 05:30 IMPRESSION: 1. No definite acute osseous findings. CT could be considered for further evaluation if warranted. 2. Large colonic stool. Correlate for constipation. Carotid Doppler Study 08/03/25 11:28 IMPRESSION: 1. Bilateral common carotid artery generalized intimal thickening and mild carotid bulb atheromatous calcific eccentric plaque with no hemodynamically significant (not greater than 50%) carotid artery or vertebral artery stenosis. 2. Bilateral vertebral artery antegrade flow of normal velocity flow direction. REFERENCES: SRU CRITERIA. The degree of internal carotid artery stenosis is based on criteria defined by the Society of Radiologists in Ultrasound (SRU). Normal is no stenosis. Mild is less than 50% stenosis. Moderate is 50-69% stenosis. Severe is greater than 69% stenosis to near occlusion. Near occlusion is a markedly narrowed lumen. Total occlusion is no detectable patent lumen. Zoey Javier et al. Carotid Artery Stenosis: Medrano-Scale and Doppler US Diagnosis-Society of Radiologists in Ultrasound Consensus Conference. Radiology 2003; 229:340-346. Laboratory Results WBC 13.66 10^3/uL (3.29-11.43) H 08/03/25 05:33 RBC 3.58 10^6/uL (3.85-5.65) L 08/03/25 05:33 Hgb 10.90 g/dL (11.27-16.99) L 08/03/25 05:33 Hct 33.6 % (37-53) L 08/03/25 05:33 MCV 93.9 fl (82-101) 08/03/25 05:33 MCH 30.4 pg (27-33) 08/03/25 05:33 MCHC 32.4 g/dL (30-55) 08/03/25 05:33 RDW 14.5 % (12.1-15.1) 08/03/25 05:33 Plt Count 205 10^3/cmm (157-399) 08/03/25 05:33 MPV 9.1 fL (7.4-10.4) 08/03/25 05:33 Neut % (Auto) 84.1 % 08/03/25 05:33 Lymph % (Auto) 4.5 % 08/03/25 05:33 [place] % (Auto) 10.2 % 08/03/25 05:33 Eos % (Auto) 0.1 % 08/03/25 05:33 Baso % (Auto) 0.1 % 08/03/25 05:33 Neut # (Auto) 11.50 10^3/uL (1.8-7.7) H 08/03/25 05:33 Lymph # (Auto) 0.6 10^3/uL (0.8-4.8) L 08/03/25 05:33 [place] # (Auto) 1.4 10^3/uL (0.2-0.9) H 08/03/25 05:33 Eos # (Auto) 0.0 10^3/uL (0.0-0.8) 08/03/25 05:33 Baso # (Auto) 0.0 10^3/uL (0.0-0.1) 08/03/25 05:33 Nucleated RBC % (auto) 0 % 08/03/25 05:33 Nucleated RBCs # 0.0 /100WBC 08/03/25 05:33 PT 18.40 SECONDS (12.1-14.9) H 08/03/25 05:33 INR 1.44 (0.8-1.2) H 08/03/25 05:33 Sodium 132 mmol/L (136-145) L 08/03/25 05:33 Potassium 5.0 mmol/L (3.5-5.1) 08/03/25 05:33 Chloride 93 mmol/L (98-107) L 08/03/25 05:33 Carbon Dioxide 23 mmol/L (22-29) 08/03/25 05:33 Anion Gap 21.0 (5-19) H 08/03/25 05:33 BUN 53 mg/dL (8-23) H 08/03/25 05:33 Creatinine 1.4 mg/dL (0.7-1.2) H 08/03/25 05:33 GFR Calculation Not Reportable 08/03/25 05:33 Glucose 141 mg/dL (65-115) H 08/03/25 05:33 Estimat Average Glucose 131 08/03/25 05:33 Hemoglobin A1c 6.2 % (4.0-6.0) H 08/03/25 05:33 Calculated Osmolality 291 mOsm/kg (285-295) 08/03/25 05:33 Calcium 9.9 mg/dL (8.5-10.5) 08/03/25 05:33 Magnesium 2.4 mg/dL (1.7-2.3) H 08/03/25 05:33 Iron 97 ug/dL (59-158) 08/03/25 05:33 Ferritin 103 ng/mL (30-400) 08/03/25 05:33 Total Bilirubin 1.1 mg/dL (0.15-1.2) 08/03/25 05:33 AST 54 U/L (0-40) H 08/03/25 05:33 ALT 20 U/L (0-41) 08/03/25 05:33 Alkaline Phosphatase 31 U/L (40-130) L 08/03/25 05:33 Creatine Kinase 1642 U/L (39-308) H* 08/03/25 05:33 Total Protein 7.5 g/dL (6.6-8.7) 08/03/25 05:33 Albumin 4.0 g/dL (3.5-5.2) 08/03/25 05:33 Globulin 3.5 g/dL (1.3-4.6) 08/03/25 05:33 Triglycerides 73 mg/dL (0-150) 08/03/25 05:33 Cholesterol 158 mg/dL (0-200) 08/03/25 05:33 LDL Cholesterol, Calc 89 mg/dL (50-129) 08/03/25 05:33 HDL Cholesterol 54 mg/dL (60-100) L 08/03/25 05:33 LDL/HDL Ratio 1.65 RATIO (0.00-3.22) 08/03/25 05:33 Cholesterol/HDL Ratio 2.93 mg/dL (1.0-5.00) 08/03/25 05:33 Procalcitonin 0.40 ng/mL (0-0.5) 08/03/25 05:33 TSH 4.14 uIU/mL (0.27-4.20) 08/03/25 05:33 Urine Color Yellow (Yellow) 08/03/25 04:55 Urine Appearance Clear (CLEAR) 08/03/25 04:55 Urine pH 7.0 (5-7) 08/03/25 04:55 Ur Specific [place] 1.014 (1.005-1.030) 08/03/25 04:55 Urine Protein Trace (Negative) A 08/03/25 04:55 Urine Glucose (UA) Negative (Normal) 08/03/25 04:55 Urine Ketones Negative (Negative) 08/03/25 04:55 Urine Blood 1+ (Negative) A 08/03/25 04:55 Urine Nitrate Negative (Negative) 08/03/25 04:55 Urine Bilirubin Negative (Negative) 08/03/25 04:55 Urine Urobilinogen 1.0 mg/dL (Negative) 08/03/25 04:55 Ur Leukocyte Esterase Negative (Negative) 08/03/25 04:55 Urine RBC 0-2 /hpf (0-2) 08/03/25 04:55 Urine WBC 0-5 /hpf (0-5) 08/03/25 04:55 Ur Squamous Epith Cells 0-5 /hpf (0-5) 08/03/25 04:55 Amorphous Sediment Not Reportable 08/03/25 04:55 Urine Bacteria None seen /hpf (NONE) 08/03/25 04:55 Hyaline Casts 7.42 /lpf 08/03/25 04:55 Discharge Plan Discharge Patient Disposition: Admitted As Inpatient Admit Provider: Carlos Manuel Solares Clinical Impression: Rhabdomyolysis, Acute on chronic renal insufficiency, Fall, Facial contusion, Atrial fibrillation with rapid ventricular response Condition: Stable Coding Level of Care Code ED Counselor/Art Therapist for Chg Timmy
--- NOTE | 2025-08-03 04:50 | CTR_ITS ---
PROCEDURE INFORMATION: Exam: CT Maxillofacial Without Contrast Exam date and time: 08/03/2025 5:14 AM Age: 85 years old Clinical indication: Injury or trauma; Fall; Blunt trauma (contusions or hematomas); Other: Entire face TECHNIQUE: Imaging protocol: Computed tomography of the face without contrast. Radiation optimization: All CT scans at this facility use at least one of these dose optimization techniques: automated exposure control; mA and/or kV adjustment per patient size (includes targeted exams where dose is matched to clinical indication); or iterative reconstruction. COMPARISON: CT head wo con* [id number] 12/03/2022 6:16 PM RADIATION DOSE METRICS: Total DLP (mGy-cm): 634.6 FINDINGS: Paranasal sinuses: Mucosal thickening and layering fluid most pronounced in the right maxillary sinus and also seen within the right frontal sinus and right ethmoid air cells. Trace fluid in the left maxillary sinus. Mucous layering within the right sphenoid sinus. Orbital cavities: Bilateral lens replacements. Mastoid air cells: Trace fluid in the left mastoid air cells. Teeth: Poor dentition with less than of the majority maxillary and mandibular teeth. Vasculature: Bilateral carotid calcifications, [id number]. Bones: No acute fracture. Soft tissues: Mild subcutaneous fat stranding along the chin. CT/CT facial bones wo con* [id number] IMPRESSION: 1. No acute osseous findings. 2. Mild subcutaneous fat stranding along the chin could represent contusion. 3. Right-sided paranasal sinus disease
--- NOTE | 2025-08-03 04:52 | ECG_ITS ---
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 Measurements Intervals [place] Rate: 141 P: 0 TX: 0 QRS: -57 QRSD: 82 T: 68 QT: 301 QTc: 462 Interpretive Statements ATRIAL FIBRILLATION WITH RAPID VENTRICULAR RESPONSE LEFT ANTERIOR FASCICULAR BLOCK [QRS AXIS <= -45, QR IN I, RS IN II] POSSIBLE SEPTAL MYOCARDIAL INFARCTION , PROBABLY OLD [30 ms Q WAVE IN V1/V2] Compared to ECG 07/09/2025 18:42:52 Left anterior fascicular block now present Left-axis deviation no longer present Myocardial infarct finding still present Electronically Signed On 08-04-2025 12:00:45 CDT by Zana Sidhu M.D. [email or web address]
[2025-08-03] MEDS: amiodarone 150 MG/100 ML PREMIX 400 MG IV (05:04)
[2025-08-03 05:05] LABS: Glucose Urine UA Negative (Normal); Nitrate Urine Negative (Negative); Specific Gravity, Urine 1.014 (1.005-1.030)
[2025-08-03 05:10] LABS: Add Urine Microscopic? YES
--- NOTE | 2025-08-03 05:15 | CTR_ITS ---
PROCEDURE INFORMATION: Exam: CT Cervical Spine Without Contrast Exam date and time: 08/03/2025 5:14 AM Age: 85 years old Clinical indication: Injury or trauma; Fall; Blunt trauma TECHNIQUE: Imaging protocol: Computed tomography of the cervical spine without contrast. Radiation optimization: All CT scans at this facility use at least one of these dose optimization techniques: automated exposure control; mA and/or kV adjustment per patient size (includes targeted exams where dose is matched to clinical indication); or iterative reconstruction. COMPARISON: CT chest w con* [id number] 07/21/2023 2:37 PM RADIATION DOSE METRICS: Total DLP (mGy-cm): 218.1 FINDINGS: Bones: No acute fracture. Normal alignment. Advanced multilevel cervical spondylosis. No significant disc bulge or herniation. No severe spinal canal stenosis. No significant neural foraminal narrowing. Mastoid air cells: Trace left mastoid effusion. Trachea: Mucous secretions within the trachea. Lungs: Lung apices are normal. Vasculature: Bilateral carotid calcifications, elum-yjwilrr-vlng-right. Soft tissues: Unremarkable. CT/CT cervical spin wo con* [id number] IMPRESSION: 1. No acute cervical spine fracture. 2. Trace left mastoid effusion.
--- NOTE | 2025-08-03 05:30 | XRR_ITS ---
PROCEDURE INFORMATION: Exam: XR Pelvis Exam date and time: 08/03/2025 5:44 AM Age: 85 years old Clinical indication: Injury or trauma; Fall; Blunt trauma (contusions or hematomas); Bilateral; Pelvic region TECHNIQUE: Imaging protocol: Radiologic exam of the pelvis. Views: 1 or 2 view. COMPARISON: CT abdomen pelvis w con* [id number] 11/17/2023 7:35 PM FINDINGS: Bones/joints: No definite acute fracture or dislocation. Lucencies of the superior pubic rami are likely related to bowel gas and fecal material. Soft tissues: Unremarkable. Gastrointestinal tract: Large amount of stool within the visualized colon. Vasculature: Scattered vascular calcifications. XR/XR pelvis 1-2V* [id number] IMPRESSION: 1. No definite acute osseous findings. CT could be considered for further evaluation if warranted. 2. Large colonic stool. Correlate for constipation.
[2025-08-03 05:39] LABS: UA Slide Review UA Slide Review Perf
[2025-08-03 05:40] LABS: Hematocrit 33.6 % (37-53); Hemoglobin 10.90 g/dL (11.27-16.99); Mean Corpuscular HGB Conc 32.4 g/dL (30-55); Mean Corpuscular Hemoglobin 30.4 pg (27-33); Mean Corpuscular Volume 93.9 fl (82-101); Nucleated Red Blood Cells % 0 %; Platelet Count 205 10^3/cmm (157-399); Red Blood Count 3.58 10^6/uL (3.85-5.65); White Blood Count 13.66 10^3/uL (3.29-11.43)
[2025-08-03] MEDS: AMIODARONE HCL/D5W 900 MG/500 ML BAG 33.33 MG IV (05:45)
[2025-08-03 05:53] LABS: INR 1.44 (0.8-1.2); Prothrombin Time 18.40 SECONDS (12.1-14.9)
[2025-08-03 06:09] LABS: Alanine Aminotransferase 20 U/L (0-41); Albumin Level 4.0 g/dL (3.5-5.2); Alkaline Phosphatase 31 U/L (40-130); Anion Gap 21.0 (5-19); Aspartate Amino Transferase 54 U/L (0-40); Blood Urea Nitrogen 53 mg/dL (8-23); Calcium 9.9 mg/dL (8.5-10.5); Carbon Dioxide 23 mmol/L (22-29); Chloride 93 mmol/L (98-107); Creatinine Clr Calc Pharmacy 24.2995; Globulin 3.5 g/dL (1.3-4.6); Glucose 141 mg/dL (65-115); Magnesium 2.4 mg/dL (1.7-2.3); Osmolality Calculated 291 mOsm/kg (285-295); Potassium 5.0 mmol/L (3.5-5.1); Sodium 132 mmol/L (136-145); Thyroid Stimulating Hormone 4.14 uIU/mL (0.27-4.20); Total Protein 7.5 g/dL (6.6-8.7)
--- NOTE | 2025-08-03 11:28 | USR_ITS ---
PROCEDURE INFORMATION: Exam: US Duplex Bilateral Extracranial Arteries; Complete; Carotid Arteries Exam date and time: 08/03/2025 4:15 PM Age: 85 years old Clinical indication: Altered mental status/memory loss; Additional info: AMS, going to 104. Hr 112 TECHNIQUE: Imaging protocol: Real-time duplex ultrasound scan of the bilateral extracranial arteries combining medrano scale, color Doppler and spectral waveform analysis with image documentation. Complete exam. Exam focused on the carotid arteries. Total images: 1 COMPARISON: 1. CT cervical spin wo con* [id number] 08/03/2025 5:[address] facial bones wo con* [id number] 08/03/2025 5:14 AM FINDINGS: Right common carotid artery: Generalized intimal thickening. Mild atheromatous eccentric calcific plaque. No occlusion or stenosis. Waveforms are normal. Right internal carotid artery: Unremarkable. No occlusion or stenosis. Waveforms are normal. Right ICA/CCA ratio: Within normal limits. Right external carotid artery: No stenosis in the origin. Right vertebral artery: Unremarkable. Antegrade flow. Left common carotid artery: Generalized intimal thickening. Mild atheromatous eccentric calcific plaque. No occlusion or stenosis. Waveforms are normal. Left internal carotid artery: Unremarkable. No occlusion or stenosis. Waveforms are normal. Left ICA/CCA ratio: Within normal limits. Left external carotid artery: No stenosis in the origin. Left vertebral artery: Unremarkable. Antegrade flow. US/CV carotid duplex BI* [id number] IMPRESSION: 1. Bilateral common carotid artery generalized intimal thickening and mild carotid bulb atheromatous calcific eccentric plaque with no hemodynamically significant (not greater than 50%) carotid artery or vertebral artery stenosis. 2. Bilateral vertebral artery antegrade flow of normal velocity flow direction. REFERENCES: SRU CRITERIA. The degree of internal carotid artery stenosis is based on criteria defined by the Society of Radiologists in Ultrasound (SRU). Normal is no stenosis. Mild is less than 50% stenosis. Moderate is 50-69% stenosis. Severe is greater than 69% stenosis to near occlusion. Near occlusion is a markedly narrowed lumen. Total occlusion is no detectable patent lumen. Zoey Javier et al. Carotid Artery Stenosis: Medrano-Scale and Doppler US Diagnosis-Society of Radiologists in Ultrasound Consensus Conference. Radiology 2003; 229:340-346.
[2025-08-03] MEDS: pantoprazole 40 mg SDV IVP (11:45)
[2025-08-03 11:51] LABS: Estmated Average Glucose 131; Hemoglobin A1C 6.2 % (4.0-6.0)
[2025-08-03 11:53] LABS: Cholesterol 158 mg/dL (0-200); Ferritin 103 ng/mL (30-400); HDL Cholesterol 54 mg/dL (60-100); Iron 97 ug/dL (59-158); Triglycerides 73 mg/dL (0-150)
[2025-08-03 12:00] LABS: Procalcitonin 0.40 ng/mL (0-0.5)
--- NOTE | 2025-08-03 12:49 | P.HP_ITS ---
Providers/Chief Complaint 2 Admitting Physician: Carlos Manuel Solares MD Primary Care Provider: JAKOB Younger Chief Complaint: fall History of Present Illness Caity Nolan is a 85 year old male with a past medical history of hypothyroidism, atrial fibrillation, diastolic CHF, who presents to [facility] for altered mental status, fall. Currently patient is alert to person, not to place, not to time, he can follow some commands but is encephalopathic, according to ER provider patient was found on the floor covered in urine and feces, currently he is globally encephalopathic I cannot discern any facial droop, no slurring of his words, he moves bilateral upper and lower extremities, he has no pain complaints, no chest pain, shortness of breath, does have bruising throughout, no family members are at bedside Review of Systems 2 Const: Denies: fever(s) Card: Denies: chest pain Resp: Denies: dyspnea Medications/Allergies Home Medications ?Medication ?Instructions ?Recorded ?Confirmed ?Last Taken ?Type polyethylene glycol 3350 17 gram 17 g PO DAILY PRN con stipation #14 11/17/23 08/03/25 Unknown Rx oral powder packet (Miralax) ea potassium chloride 20 mEq 20 meq PO BID lasix #180 tab s 12/19/24 08/03/25 08/02/25 Rx tablet,extended release levothyroxine 25 mcg tablet See Rx Instructions .Route 04/27/25 08/03/25 08/02/25 07:00 Rx .COMPLEX #30 tabs spironolactone 25 mg tablet 25 mg PO DAILY #90 tabs 08/03/25 08/02/25 Rx diltiazem HCl 90 mg 90 mg PO ONCE #90 caps 06/1208/03/25 08/02/25 Rx capsule,extended release 12 hr furosemide 20 mg tablet See Rx Instructions .Route 1 08/03/25 08/02/25 Rx .COMPLEX #180 tabs apixaban 5 mg tablet (Eliquis) 5 mg PO BID #180 tabs 1 08/03/25 08/02/25 Rx psyllium husk (with sugar) 3 1 tbsp PO DAILY constipat ion 08/03/25 08/03/25 08/02/25 History gram/7 gram oral powder (Metamucil Free (with sugar)) Allergies Allergy/AdvReac Type Severity Reaction Status Date / Time No Known Allergies Allergy Verified 06/19/25 14:30 PFSH Acute 2 PFSH: Medical History Diastolic heart failure 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 Social History Smoking and tobacco/nicotine status: former use of tobacco/nicotine Quit status (tobacco/nicotine): has quit using Second hand smoke exposure: No Alcohol intake: current Alcohol intake frequency: 0-2 Drinks per Day Adopted: No Household members: none Housing: House Vitals/I&O/Wt Last Vital Signs Pulse 104 H 08/03/25 10:06 Resp 16 08/03/25 10:06 BP 110/71 08/03/25 10:06 Pulse Ox 95 08/03/25 11:34 O2 Del Method Room Air 08/03/25 11:34 08/02/25 08/03/25 08/03/25 22:59 06:59 14:59 Intake Total 1100 / 1100 1199.98 / 1199.98 Balance 1100 / 1100 1199.98 / 1199.98 Weight last 48 hrs Weight 45.359 kg Physical Exam 2 Const: COMMON NORMALS: no acute distress EXAM LIMITATIONS: altered mental status ORIENTATION/CONSCIOUSNESS: Yes awake, Yes oriented to person and Yes confused; not oriented to place and not oriented to time OTHER: Kernig sign negative, Brudunski sign negative, encephalopathic, does not know his birthdate, does not know the time HENMT: COMMON NORMALS: normocephalic HEAD & SCALP: normocephalic Eye: COMMON NORMALS: Equal, round and reactive pupils present Neck/C-Spine: COMMON NORMALS: no JVD Lymph: LYMPHATIC: no lymphadenopathy noted Resp: COMMON NORMALS: normal respiratory effort, No retractions, No use of accessory muscles and clear to auscultation bilaterally AUSCULTATION: clear to auscultation bilaterally Cardio: COMMON NORMALS: no JVD, S1 normal heart sound present and S2 normal heart sound present RATE: tachycardic RHYTHM: abnormal rhythm irregularly irregular HEART SOUNDS: S1 normal heart sound present and S2 normal heart sound present GI: COMMON NORMALS: Normal to inspection, nondistended, normoactive bowel sounds present, Soft to palpation and non-tender : COMMON NORMALS: Yes no CVA tenderness Extremity: COMMON NORMALS: no calf tenderness and no pedal edema Neuro: COMMON NORMALS: moves all extremities OTHER: Follows some commands, encephalopathic, moves bilateral upper and lower extremities Skin: NARRATIVE SKIN EXAM: Rash bilateral knees, bruising throughout bilateral knees Bruising bilateral upper extremities Bruising throughout cranium, Bruising bilateral lower extremities, bilateral lower feet Data 08/03/25 05:33 08/03/25 05:33 Micro: Microbiology 08/03/25 05:33 Blood Culture - Preliminary Blood SPECIMEN COLLECTED A&P Assessment and plan 1. Atrial fibrillation with RVR: 2. Diastolic heart failure: 3. Hypothyroid: 4. Acute on chronic renal insufficiency: 5. Anemia: 6. Rhabdomyolysis: 7. Fall: 8. AMS (altered mental status): Plan: Altered mental status Head CT CT/CT head wo con* [id number] IMPRESSION: 1. No acute intracranial abnormality. 2. Right-sided paranasal sinus disease. Facial CT CT/CT facial bones wo con* [id number] IMPRESSION: 1. No acute osseous findings. 2. Mild subcutaneous fat stranding along the chin could represent contusion. 3. Right-sided paranasal sinus diseas - Neurochecks - NIH stroke scale - Aspiration precautions Rhabdomyolysis - IV fluids Atrial fibrillation with rapid ventricle response - IV amiodarone - Continue home Eliquis Acute kidney injury, IV fluids Leukocytosis - CRP, Pro-Abiodun, blood cultures - UA - Chest x-ray Hemoglobin A1c, 6.2 Full code Eliquis for DVT prophylaxis PDMP PDMP Reviewed: Not Reviewed Attestations 2 Medical Necessity Statement*: Requires hospitalization for altered mental status, A-fib with RVR, inpatient, greater than 2 midnights Diagnoses Atrial fibrillation with RVR I48.91 Diastolic heart failure I50.30 Hypothyroid E03.9 Acute on chronic renal insufficiency N28.9; N18.9 Anemia D64.9 Rhabdomyolysis M62.82 Fall W19.XXXA AMS (altered mental status) R41.82
[2025-08-03 13:16] LABS: Troponin(5th) Baseline 72 ng/L (0-15)
[2025-08-03 13:17] LABS: Lactic Sepsis W/Reflex 1.4 mmol/L (0.5-2.2)
--- NOTE | 2025-08-03 13:28 | ECG_ITS ---
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 Measurements Intervals Rowe Rate: 108 P: 0 SD: 0 QRS: -58 QRSD: 80 T: 55 QT: 378 QTc: 507 Interpretive Statements ATRIAL FIBRILLATION WITH RAPID VENTRICULAR RESPONSE LEFT ANTERIOR FASCICULAR BLOCK [QRS AXIS <= -45, QR IN I, RS IN II] MINIMAL ST DEPRESSION [0.025+ mV ST DEPRESSION] Compared to ECG 08/03/2025 04:52:41 ST (T wave) deviation now present Myocardial infarct finding no longer present Electronically Signed On 08-04-2025 12:07:43 CDT by Zana Sidhu M.D. [email or web address] [id number]
[2025-08-03 15:05] LABS: Troponin 5 2HR 70.44 ng/L (0-15)
[2025-08-03 15:09] LABS: Troponin 5 2HR Delta -1.56 ABS# (0-10)
--- NOTE | 2025-08-03 15:22 | PC.NURSE ---
guillermo present upon shift change placed by BRIAN RN. unable to document this in worklist. 16 Fr Indwelling guillermo catheter - placed 0600 by BRIAN LARKIN. Pale yellow urine draining from indwelling guillermo catheter.
--- NOTE | 2025-08-03 17:28 | ECG_ITS ---
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 Measurements Intervals Ama Rate: 100 P: 0 AZ: 0 QRS: 31 QRSD: 84 T: 61 QT: 380 QTc: 492 Interpretive Statements ATRIAL FIBRILLATION WITH RAPID VENTRICULAR RESPONSE SEPTAL MYOCARDIAL INFARCTION , PROBABLY OLD [40+ ms Q WAVE IN V1/V2] INTERPRETATION BASED ON A DEFAULT AGE OF 40 YEARS Compared to ECG 08/03/2025 13:35:02 Myocardial infarct finding now present Left anterior fascicular block no longer present ST (T wave) deviation no longer present Electronically Signed On 08-04-2025 12:06:29 CDT by Zana Sidhu M.D. [email or web address] [id number]
[2025-08-03 20:01] LABS: Troponin 5 6HR 70.91 ng/L (0-15)
[2025-08-03 20:09] LABS: Troponin 5 6HR Delta -1.09 ng/L (0-12)
[2025-08-03] MEDS: LORazepam 1 MG/0.5 ML injection 2 MG IVP (22:54)
[2025-08-04] VITALS (55 sets, daily range): BP systolic 86–146; BP diastolic 58–101; PULSE 104–157; RESP 16–31; TEMP 36.3–37.1; O2SAT 74–98
--- NOTE | 2025-08-04 00:34 | PC.NURSE ---
Contacted due to patients heart rate still being between 110-130 on the 0.5mg dose of amiodarone drip, recieved orders to try it a 1mg for 2 hours and reassess, also let him know about patients cough with dark green phlegm.
[2025-08-04] MEDS: AMIODARONE HCL/D5W 900 MG/500 ML BAG 16.67 MG IV (02:37)
[2025-08-04 05:08] LABS: Hematocrit 32.1 % (37-53); Hemoglobin 10.10 g/dL (11.27-16.99); Mean Corpuscular HGB Conc 31.5 g/dL (30-55); Mean Corpuscular Hemoglobin 30.7 pg (27-33); Mean Corpuscular Volume 97.6 fl (82-101); Nucleated Red Blood Cells % 0 %; Platelet Count 171 10^3/cmm (157-399); Red Blood Count 3.29 10^6/uL (3.85-5.65); White Blood Count 8.64 10^3/uL (3.29-11.43)
[2025-08-04 05:41] LABS: Alanine Aminotransferase 28 U/L (0-41); Albumin Level 3.0 g/dL (3.5-5.2); Alkaline Phosphatase 23 U/L (40-130); Anion Gap 15.6 (5-19); Aspartate Amino Transferase 78 U/L (0-40); Blood Urea Nitrogen 34 mg/dL (8-23); Calcium 8.3 mg/dL (8.5-10.5); Carbon Dioxide 20 mmol/L (22-29); Chloride 103 mmol/L (98-107); Creatinine Clr Calc Pharmacy 44.0213; Globulin 3.0 g/dL (1.3-4.6); Glucose 83 mg/dL (65-115); Osmolality Calculated 287 mOsm/kg (285-295); Potassium 3.6 mmol/L (3.5-5.1); Sodium 135 mmol/L (136-145); Total Protein 6.0 g/dL (6.6-8.7)
[2025-08-04] MEDS: LORazepam 1 MG/0.5 ML injection 2 MG IVP (06:53)
--- NOTE | 2025-08-04 09:00 | CTR_ITS ---
PROCEDURE INFORMATION: Exam: CT Head Without Contrast Exam date and time: 08/04/2025 9:56 AM Age: 85 years old Clinical indication: Injury or trauma; Fall; Blunt trauma (contusions or hematomas); Consciousness not specified; Altered mental status/memory loss; Confusion or disorientation; Additional info: AMS, fall TECHNIQUE: Imaging protocol: Computed tomography of the head without contrast. Radiation optimization: All CT scans at this facility use at least one of these dose optimization techniques: automated exposure control; mA and/or kV adjustment per patient size (includes targeted exams where dose is matched to clinical indication); or iterative reconstruction. COMPARISON: CT head wo con* [id number] 08/03/2025 5:14 AM RADIATION DOSE METRICS: Total DLP (mGy-cm): 1098.08 FINDINGS: Brain: There is decreased attenuation in the periventricular white matter tracts consistent with small-vessel ischemic changes. No acute hemorrhage identified. There is no focal evidence of edema Cerebral ventricles: There is generalized enlargement of the ventricles, sulci and cisterns consistent with involutional changes. No midline shift. Paranasal sinuses: There is near-complete opacification of the right maxillary sinus. Mucosal thickening is also present within the sphenoid , ethmoid, and frontal sinuses. Mastoid air cells: Visualized mastoid air cells are well aerated. Bones: No fractures are identified. Soft tissues: Unremarkable. CT/CT head wo con* [id number] IMPRESSION: Pansinusitis. Involutional changes. No acute abnormality identified.
--- NOTE | 2025-08-04 09:01 | XRR_ITS ---
PROCEDURE INFORMATION: Exam: XR Chest Exam date and time: 08/04/2025 9:57 AM Age: 85 years old Clinical indication: Dyspnea and wheezing; Additional info: Aspiration TECHNIQUE: Imaging protocol: Radiologic exam of the chest. Views: 1 view. COMPARISON: CR (CHEST, ) 08/03/2025 4:49 AM FINDINGS: Lungs: Unremarkable. No consolidation. Pleural spaces: Unremarkable. No pleural effusion. No pneumothorax. Heart/Mediastinum: Heart size is normal. There is atherosclerosis of the aorta. Bones/joints: Unremarkable. XR/XR chest 1V portable [id number] IMPRESSION: Stable findings.
--- NOTE | 2025-08-04 09:32 | PC.PT ---
0832: Pt inappropriate for PT evaluation today per TRAE Fischer. He is unable to follow directions at this time and keeps aspirating. Will reattempt at a later time to see if pt is more appropriate.
[2025-08-04] MEDS: piperacillin-tazobactam 3.375 GM in sodium chloride 0.9% (plus) 50 ML IV ×2 (10:20→21:05)
--- NOTE | 2025-08-04 11:31 | PC.OT ---
Attempted OT Evaluation today. Nurse notified that Patient has been not responding very well and OT evaluation can wait till later. OT evaluation will be attempted on Wednesday.
--- NOTE | 2025-08-04 11:39 | PC.CHAP ---
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 [] Patient/Family/Request visit [] Outpatient visit [] Follow-up visit [] Physician referral [] Code/Alert [X] Routine visit [] Staff referral [] Actively dying [] Patient sleeping [] Family support [] [X] Out of room [] Palliative care [] [] Receiving care in room [] Pre-surgical visit [] Trauma [] Long length of stay [] ICU visit [] Other: Relational/Emotional Strength [] Patient feels connected with others/family/visitors/staff [] Distress [] Loneliness/isolation [] Abandonment Spirituality of Patient [] Person of Francy [] Attends Nondenominational of their Francy [] Believes in Prayer [] Reads Bible or Orthodoxy materials [] There are Spiritual issues to be addressed Abrading Machine Tender Interventions [] Prayer [] Active listening [] Non-anxious presence [] Spiritual/emotional support [] Crisis/trauma care [] Spiritual counseling [] Bereavement support [] Provided bereavement packet [] Provided Bible/devotional materials [] Provided toy/stuffed animal, coloring book to patient or family member [] Provided Communion [] Anointing/[place] [] Salvation [] Completed spiritual assessment [] Other: Impact on Illness or Injury [] Angry [] Fearful [] Anxious [] Often cries [] Exhaustion [] Unable to work [] Unable to attend latter-day [] Unable to walk/stand [] Unable to read [] Unable to drive [] Unable to eat/drink [] Unable to sleep [] Unable to be with family [] Patient intubated [] Other: Summary Time spent with patient
[2025-08-04 13:17] LABS: ABG PCO2 27.9 mmHg (35-45); ABG PH Result 7.48 (7.35-7.45); Arterial Blood Gas Hematocrit 31.0 % (42-52); Blood Gas LPM 3.0 %; Blood Gas Operator Identificat GD; Blood Gas Sample Site Brachial, left; Blood Gas Sample Type Arterial; HCO3 ABG 20.6 mmol/L (22-26); PO2 ABG 65.5 mmHg (80.0-100.0); PO2 FiO2 Ratio Arterial Blood 204
[2025-08-04] MEDS: pantoprazole 40 mg SDV IVP (13:23)
[2025-08-04 14:48] LABS: Lactic Sepsis W/Reflex 1.3 mmol/L (0.5-2.2)
[2025-08-04 14:59] LABS: NT Pro B Type Natriuretic Pept 6267 pg/mL (0-450); Procalcitonin 0.42 ng/mL (0-0.5)
[2025-08-04 15:27] LABS: Ammonia 21 umol/L (16-60)
--- NOTE | 2025-08-04 15:28 | P.PN_ITS ---
Subjective 2 Subjective: Patient was seen this morning, currently alert to person, not to place, not to time, diffusely encephalopathic, with nursing staff worried about risk of aspiration, he responds to his name but easily falls back asleep, afebrile, currently in A-fib with RVR, on amiodarone drip, normotensive, on 3 L Vitals/I&O/Wt Last Vital Signs Temp 98.7 F 08/04/25 12:00 Pulse 109 H 08/04/25 12:00 Resp 17 08/04/25 12:00 BP 124/75 08/04/25 12:00 Pulse Ox 93 08/04/25 12:00 O2 Del Method Nasal Cannula 08/04/25 12:00 O2 Flow Rate 3 08/04/25 12:00 08/04/25 08/04/25 08/04/25 06:59 14:59 22:59 Intake Total 279.760 / 6024.666 4035 / 1000 50 / 1050 Output Total 350 / 1500 425 / 425 Balance -70.240 / -20.260 575 / 575 50 / 625 Weight last 48 hrs Weight 60.736 kg Weight 58.695 kg Weight 45.359 kg Physical Exam 2 Const: COMMON NORMALS: no acute distress Eye: COMMON NORMALS: Equal, round and reactive pupils present PUPIL: Yes Equal, round and reactive pupils present Resp: COMMON NORMALS: normal respiratory effort, No retractions and No use of accessory muscles AUSCULTATION: crackles and wheezes Cardio: COMMON NORMALS: S1 normal heart sound present and S2 normal heart sound present RATE: tachycardic RHYTHM: abnormal rhythm irregularly irregular HEART SOUNDS: S1 normal heart sound present and S2 normal heart sound present GI: COMMON NORMALS: Normal to inspection, nondistended, normoactive bowel sounds present and non-tender Extremity: COMMON NORMALS: no calf tenderness NARRATIVE EXTREMITY EXAM: 1+ edema Urinary Catheter Management: Oneill: Cath Placed During This Visit: yes Reason for Continuing Indwelling Catheter: Other Urinary Catheter Date of Insertion: 08/03/25 Data 08/04/25 04:22 08/04/25 04:22 Micro: Microbiology 08/03/25 12:52 Blood Culture - Preliminary Blood NEGATIVE TO DATE 08/03/25 05:33 Blood Culture - Preliminary Blood NEGATIVE TO DATE A&P Assessment and plan 1. Atrial fibrillation with RVR: 2. Diastolic heart failure: 3. Hypothyroid: 4. Acute on chronic renal insufficiency: 5. Anemia: 6. Rhabdomyolysis: 7. Fall: 8. AMS (altered mental status): Plan: Altered mental status Head CT CT/CT head wo con* [id number] IMPRESSION: 1. No acute intracranial abnormality. 2. Right-sided paranasal sinus disease. Facial CT CT/CT facial bones wo con* [id number] IMPRESSION: 1. No acute osseous findings. 2. Mild subcutaneous fat stranding along the chin could represent contusion. 3. Right-sided paranasal sinus diseas -Repeat head CT, chest x-ray, ABG, -IV Zosyn - Neurochecks - NIH stroke scale - Aspiration precautions Diastolic CHF exacerbation - Fluid overload - Elevated BNP - Lasix 40 IV once Rhabdomyolysis - Resolved Atrial fibrillation with rapid ventricle response - IV amiodarone - Continue home Eliquis Acute kidney injury, monitor creatinine Leukocytosis -Concern for aspiration pneumonia - blood cultures - N.p.o. - IV Zosyn - Monitor respiratory status closely Hemoglobin A1c, 6.2 Full code Eliquis for DVT prophylaxis PDMP PDMP Reviewed: Not Reviewed Attestations 2 Medical Necessity Statement*: Patient requires hospitalization for altered mental status, atrial fibrillation, diastolic CHF, leukocytosis, aspiration pneumonia Diagnoses Atrial fibrillation with RVR I48.91 Diastolic heart failure I50.30 Hypothyroid E03.9 Acute on chronic renal insufficiency N28.9; N18.9 Anemia D64.9 Rhabdomyolysis M62.82 Fall W19.XXXA AMS (altered mental status) R41.82
[2025-08-04] MEDS: lidocaine 1% 5 ML in potassium chloride premix 100 ML 52.5 ML IV (17:19)
[2025-08-04] MEDS: FUROsemide 10 mg/mL SDV 4mL 40 MG IVP (17:19)
--- NOTE | 2025-08-04 20:44 | PC.NURSE ---
1:1 documentation will be done on paper charting and placed in patient chart.
[2025-08-05] VITALS (8 sets, daily range): BP systolic 94–112; BP diastolic 59–66; PULSE 91–126; RESP 17–27; TEMP 36.6–36.9; O2SAT 94–98
[2025-08-05 03:45] LABS: Hematocrit 33.6 % (37-53); Hemoglobin 10.80 g/dL (11.27-16.99); Mean Corpuscular HGB Conc 32.1 g/dL (30-55); Mean Corpuscular Hemoglobin 30.3 pg (27-33); Mean Corpuscular Volume 94.1 fl (82-101); Nucleated Red Blood Cells % 0 %; Platelet Count 189 10^3/cmm (157-399); Red Blood Count 3.57 10^6/uL (3.85-5.65); White Blood Count 6.01 10^3/uL (3.29-11.43)
[2025-08-05 04:10] LABS: NT Pro B Type Natriuretic Pept 6758 pg/mL (0-450); Procalcitonin 0.38 ng/mL (0-0.5)
[2025-08-05 04:11] LABS: Lactate (Lactic Acid level) 1.3 mmol/L (0.5-2.2)
[2025-08-05 04:12] LABS: Alanine Aminotransferase 31 U/L (0-41); Albumin Level 3.4 g/dL (3.5-5.2); Alkaline Phosphatase 26 U/L (40-130); Chloride 105 mmol/L (98-107); Potassium 3.0 mmol/L (3.5-5.1); Sodium 141 mmol/L (136-145)
[2025-08-05] MEDS: piperacillin-tazobactam 3.375 GM in sodium chloride 0.9% (plus) 50 ML IV ×3 (04:25→23:33)
[2025-08-05 04:46] LABS: Anion Gap 18.0 (5-19); Aspartate Amino Transferase 60 U/L (0-40); Blood Urea Nitrogen 27 mg/dL (8-23); Calcium 8.2 mg/dL (8.5-10.5); Carbon Dioxide 21 mmol/L (22-29); Creatinine Clr Calc Pharmacy 39.8645; Globulin 2.6 g/dL (1.3-4.6); Glucose 87 mg/dL (65-115); Osmolality Calculated 296 mOsm/kg (285-295); Total Protein 6.0 g/dL (6.6-8.7)
[2025-08-05] MEDS: AMIODARONE HCL/D5W 900 MG/500 ML BAG 16.67 MG IV (09:15)
[2025-08-05] MEDS: lidocaine 1% 5 ML in potassium chloride premix 100 ML 26.25 ML IV (10:16)
[2025-08-05] MEDS: pantoprazole 40 mg SDV IVP (10:17)
--- NOTE | 2025-08-05 12:38 | P.PN_ITS ---
Subjective 2 Subjective: Patient was seen this morning, he is much more alert awake, alert to person, not to place, not to time can follow some commands, moves bilateral upper and lower extremities, has no complaints of chest pain or shortness of breath, on room air Vitals/I&O/Wt Last Vital Signs Temp 98.4 F 08/05/25 11:23 Pulse 125 H 08/05/25 11:23 Resp 17 08/05/25 11:23 BP 94/66 08/05/25 11:23 Pulse Ox 96 08/05/25 11:23 O2 Del Method Room Air 08/05/25 11:23 O2 Flow Rate 3 08/04/25 12:00 08/04/25 08/05/25 08/05/25 22:59 06:59 14:59 Intake Total 155 / 1155 50 / 1205 1550 / 1550 Output Total 2550 / 2975 800 / 3775 Balance -2395 / -1820 -750 / -2570 1550 / 1550 Weight last 48 hrs Weight 58.468 kg Weight 60.736 kg Weight 58.695 kg Physical Exam 2 Const: COMMON NORMALS: no acute distress and patient oriented x3 Eye: COMMON NORMALS: Equal, round and reactive pupils present PUPIL: Yes Equal, round and reactive pupils present Resp: COMMON NORMALS: normal respiratory effort, No retractions and No use of accessory muscles AUSCULTATION: crackles and wheezes Cardio: COMMON NORMALS: regular rate, regular rhythm, S1 normal heart sound present and S2 normal heart sound present RATE: regular rate RHYTHM: r egular rhythm HEART SOUNDS: S1 normal heart sound present and S2 normal heart sound present GI: COMMON NORMALS: Normal to inspection, nondistended, normoactive bowel sounds present and non-tender Extremity: COMMON NORMALS: no pedal edema Neuro: COMMON NORMALS: patient oriented x3 Psych: COMMON NORMALS: mental status grossly normal Urinary Catheter Management: Oneill: Cath Placed During This Visit: yes Reason for Continuing Indwelling Catheter: Other Urinary Catheter Date of Insertion: 08/03/25 Data 08/05/25 03:17 08/05/25 03:17 Micro: Microbiology 08/03/25 12:52 Blood Culture - Preliminary Blood NEGATIVE TO DATE 08/03/25 05:33 Blood Culture - Preliminary Blood NEGATIVE TO DATE A&P Assessment and plan 1. Atrial fibrillation with RVR: 2. Diastolic heart failure: 3. Hypothyroid: 4. Acute on chronic renal insufficiency: 5. Anemia: 6. Rhabdomyolysis: 7. Fall: 8. AMS (altered mental status): Plan: Altered mental status Head CT CT/CT head wo con* [id number] IMPRESSION: 1. No acute intracranial abnormality. 2. Right-sided paranasal sinus disease. Facial CT CT/CT facial bones wo con* [id number] IMPRESSION: 1. No acute osseous findings. 2. Mild subcutaneous fat stranding along the chin could represent contusion. 3. Right-sided paranasal sinus diseas -Component of aspiration pneumonia -IV Zosyn - Neurochecks - NIH stroke scale - Aspiration precautions Aspiration pneumonia, Zosyn Diastolic CHF exacerbation - Fluid overload - Elevated BNP - Lasix 40 IV once, -3 L, Rhabdomyolysis - Resolved Atrial fibrillation with rapid ventricle response - IV amiodarone - Continue home Eliquis Acute kidney injury, monitor creatinine Leukocytosis -Concern for aspiration pneumonia - blood cultures - N.p.o. - IV Zosyn - Monitor respiratory status closely Hemoglobin A1c, 6.2 Protein calorie malnutrition, physical deconditioning, consult dietitian Full code Eliquis for DVT prophylaxis PDMP PDMP Reviewed: Not Reviewed Attestations 2 Medical Necessity Statement*: Patient requires hospitalization for atrial fibrillation with response, diastolic CHF, aspiration pneumonia Diagnoses Atrial fibrillation with RVR I48.91 Diastolic heart failure I50.30 Hypothyroid E03.9 Acute on chronic renal insufficiency N28.9; N18.9 Anemia D64.9 Rhabdomyolysis M62.82 Fall W19.XXXA AMS (altered mental status) R41.82
[2025-08-05] MEDS: albumin 25 G/100 ML BAG 60 G IV ×2 (16:25→23:33)
[2025-08-05] MEDS: amiodarone 150 MG/100 ML PREMIX 400 MG IV (16:25)
[2025-08-05] MEDS: AMIODARONE HCL/D5W 900 MG/500 ML BAG 33.33 MG IV (17:00)
[2025-08-06] VITALS (10 sets, daily range): BP systolic 101–112; BP diastolic 64–87; PULSE 87–110; RESP 18–24; TEMP 36.4–37; O2SAT 97–99
[2025-08-06 04:55] LABS: Hematocrit 28.3 % (37-53); Hemoglobin 9.20 g/dL (11.27-16.99); Mean Corpuscular HGB Conc 32.5 g/dL (30-55); Mean Corpuscular Hemoglobin 31.2 pg (27-33); Mean Corpuscular Volume 95.9 fl (82-101); Nucleated Red Blood Cells % 0 %; Platelet Count 166 10^3/cmm (157-399); Red Blood Count 2.95 10^6/uL (3.85-5.65); White Blood Count 5.65 10^3/uL (3.29-11.43)
[2025-08-06 05:18] LABS: Lactate (Lactic Acid level) 1.0 mmol/L (0.5-2.2)
[2025-08-06 05:20] LABS: Alanine Aminotransferase 20 U/L (0-41); Albumin Level 3.5 g/dL (3.5-5.2); Alkaline Phosphatase 18 U/L (40-130); Anion Gap 14.2 (5-19); Aspartate Amino Transferase 29 U/L (0-40); Blood Urea Nitrogen 27 mg/dL (8-23); Calcium 8.5 mg/dL (8.5-10.5); Carbon Dioxide 23 mmol/L (22-29); Chloride 102 mmol/L (98-107); Creatinine Clr Calc Pharmacy 43.8510; Globulin 2.8 g/dL (1.3-4.6); Glucose 126 mg/dL (65-115); Osmolality Calculated 289 mOsm/kg (285-295); Potassium 3.2 mmol/L (3.5-5.1); Sodium 136 mmol/L (136-145); Total Protein 6.3 g/dL (6.6-8.7)
[2025-08-06 05:25] LABS: Procalcitonin 0.23 ng/mL (0-0.5)
[2025-08-06 05:29] LABS: NT Pro B Type Natriuretic Pept 3438 pg/mL (0-450)
[2025-08-06] MEDS: piperacillin-tazobactam 3.375 GM in sodium chloride 0.9% (plus) 50 ML IV ×2 (05:59→22:34)
--- NOTE | 2025-08-06 09:31 | PC.CHAP ---
Pastoral Care Encounter/Spiritual Assessment Type of Contact [] Declined car parker visit [] Patient/Family/Request visit [] Outpatient visit [] Follow-up visit [] Physician referral [] Code/Alert [x] Routine visit [] Staff referral [] Actively dying [] Patient sleeping [x] Family support [] [] Out of room [] Palliative care [] [] Receiving care in room [] Pre-surgical visit [] Trauma [] Long length of stay [] ICU visit [] Other: Relational/Emotional Strength [] Patient feels connected with others/family/visitors/staff [] Distress [] Loneliness/isolation [] Abandonment Spirituality of Patient [x] Person of Francy [] Attends [facility] of their Francy [x] Believes in Prayer [] Reads Bible or Voodoo materials [] There are Spiritual issues to be addressed Special Services Agent Interventions [x] Prayer [x] Active listening [] Non-anxious presence [] Spiritual/emotional support [] Crisis/trauma care [] Spiritual counseling [] Bereavement support [] Provided bereavement packet [x] Provided Bible/devotional materials [] Provided toy/stuffed animal, coloring book to patient or family member [] Provided Communion [] Anointing/[place] [] Salvation [x] Completed spiritual assessment [] Other: Impact on Illness or Injury [] Angry [] Fearful [] Anxious [] Often cries [] Exhaustion [] Unable to work [] Unable to attend denominational [] Unable to walk/stand [] Unable to read [] Unable to drive [] Unable to eat/drink [] Unable to sleep [] Unable to be with family [] Patient intubated [] Other: Summary Time spent with patient 5 min
[2025-08-06] MEDS: digoxin 250 mcg/ml INJ 2 mL 125 MCG IVP ×2 (10:35→17:49)
[2025-08-06] MEDS: pantoprazole 40 mg SDV IVP (10:35)
--- NOTE | 2025-08-06 10:40 | PC.SOCIAL ---
IMM Update pg 2 of IMM Updated and reviewed w/ patient and family. Copy provided and copy dated, initialed and placed in chart.
[2025-08-06] MEDS: AMIODARONE HCL/D5W 900 MG/500 ML BAG 16.67 MG IV (13:28)
--- NOTE | 2025-08-06 17:32 | P.PN_ITS ---
Subjective 2 Subjective: Patient was seen this morning - He is much more alert and awake - Alert to person, not place, to time he can follow commands - He denies any pain complaints, but rep eats that he wants to go home - No family members at bedside - Remains in A-fib with RVR on amiodaron e drip - Order placed for digoxin Vitals/I&O/Wt Last Vital Signs Temp 97.6 F 08/06/25 07:21 Pulse 110 H 08/06/25 16:00 Resp 21 H 08/06/25 16:00 BP 111/80 08/06/25 16:00 Pulse Ox 99 08/06/25 16:00 O2 Del Method Room Air 08/06/25 07:55 O2 Flow Rate 3 08/04/25 12:00 08/06/25 08/06/25 08/06/25 06:59 14:59 22:59 Intake Total 367.201 / 3098.659 1122.547 / 1122.547 Output Total 600 / 1000 400 / 400 Balance -232.799 / 2098.659 1122.547 / 1122.547 -400 / 722.547 Weight last 48 hrs Weight 60.373 kg Weight 58.468 kg Physical Exam 2 Const: COMMON NORMALS: no acute distress ORIENTATION/CONSCIOUSNESS: Yes awake, Yes oriented to person and Yes confused; not oriented to place and not oriented to time Eye: COMMON NORMALS: Equal, round and reactive pupils present PUPIL: Yes Equal, round and reactive pupils present Resp: COMMON NORMALS: normal respiratory effort, No retractions and No use of accessory muscles OTHER: Crackles in all lung razo Cardio: COMMON NORMALS: S1 normal heart sound present and S2 normal heart sound present RATE: tachycardic RHYTHM: abnormal rhythm HEART SOUNDS: S 1 normal heart sound present and S2 normal heart sound present GI: COMMON NORMALS: Normal to inspection, nondistended, normoactive bowel sounds present and non-tender Extremity: COMMON NORMALS: no pedal edema Neuro: SENSORIUM/ORIENTATION: Yes oriented to person, No oriented to place and No oriented to time OTHER: Moves bilateral upper and lower extremities, can follow some commands but has encephalopathy Skin: NARRATIVE SKIN EXAM: Anasarca Urinary Catheter Management: Oneill: Cath Placed During This Visit: yes Reason for Continuing Indwelling Catheter: Accurate Measurement of Urinary Output in Critically Ill Patients Urinary Catheter Date of Insertion: 08/03/25 Data 08/06/25 04:46 08/06/25 04:46 A&P Assessment and plan 1. Atrial fibrillation with RVR: 2. Diastolic heart failure: 3. Hypothyroid: 4. Acute on chronic renal insufficiency: 5. Anemia: 6. Rhabdomyolysis: 7. Fall: 8. AMS (altered mental status): Plan: Altered mental status Head CT CT/CT head wo con* [id number] IMPRESSION: 1. No acute intracranial abnormality. 2. Right-sided paranasal sinus disease. Facial CT CT/CT facial bones wo con* [id number] IMPRESSION: 1. No acute osseous findings. 2. Mild subcutaneous fat stranding along the chin could represent contusion. 3. Right-sided paranasal sinus diseas -Patient remains globally encephalopathic, is alert to person, not place, to time can follow some commands -Component of aspiration pneumonia -Concern for sepsis secondary to aspiration pneumonia -IV Zosyn - Neurochecks - NIH stroke scale - Aspiration precautions Aspiration pneumonia, Zosyn Diastolic CHF exacerbation - Fluid overload - Elevated BNP - Lasix IV once today with albumin Rhabdomyolysis - Resolved Atrial fibrillation with rapid ventricle response - IV amiodarone -1 dose of digoxin - Continue home Eliquis Acute kidney injury, monitor creatinine Leukocytosis -Concern for aspiration pneumonia - blood cultures - On dysphagia level diet - IV Zosyn - Monitor respiratory status closely Hemoglobin A1c, 6.2 Protein calorie malnutrition, physical deconditioning, consult dietitian Full code Eliquis for DVT prophylaxis PDMP PDMP Reviewed: Not Reviewed Attestations 2 Medical Necessity Statement*: Patient requires hospitalization for altered mental status, aspiration ammonia, diastolic CHF, atrial fibrillation, Diagnoses Atrial fibrillation with RVR I48.91 Diastolic heart failure I50.30 Hypothyroid E03.9 Acute on chronic renal insufficiency N28.9; N18.9 Anemia D64.9 Rhabdomyolysis M62.82 Fall W19.XXXA AMS (altered mental status) R41.82
[2025-08-06] MEDS: FUROsemide 10 mg/mL SDV 2mL 20 MG IVP (17:49)
[2025-08-06] MEDS: lidocaine 1% 5 ML in potassium chloride premix 100 ML 52.5 ML IV (17:49)
[2025-08-06] MEDS: albumin 25 G/100 ML BAG 60 G IV (17:50)
[2025-08-07] VITALS (12 sets, daily range): BP systolic 82–107; BP diastolic 53–65; PULSE 23–102; RESP 15–99; TEMP 36.6–37.1; O2SAT 96–100
[2025-08-07] MEDS: albumin 25 G/100 ML BAG 60 G IV ×2 (00:21→08:07)
[2025-08-07 05:21] LABS: Hematocrit 30.3 % (37-53); Hemoglobin 9.80 g/dL (11.27-16.99); Mean Corpuscular HGB Conc 32.3 g/dL (30-55); Mean Corpuscular Hemoglobin 30.7 pg (27-33); Mean Corpuscular Volume 95.0 fl (82-101); Nucleated Red Blood Cells % 0 %; Platelet Count 165 10^3/cmm (157-399); Red Blood Count 3.19 10^6/uL (3.85-5.65); White Blood Count 5.55 10^3/uL (3.29-11.43)
[2025-08-07 05:47] LABS: Alanine Aminotransferase 20 U/L (0-41); Albumin Level 4.0 g/dL (3.5-5.2); Alkaline Phosphatase 18 U/L (40-130); Anion Gap 16.5 (5-19); Aspartate Amino Transferase 31 U/L (0-40); Blood Urea Nitrogen 18 mg/dL (8-23); Calcium 8.9 mg/dL (8.5-10.5); Carbon Dioxide 26 mmol/L (22-29); Chloride 98 mmol/L (98-107); Creatinine Clr Calc Pharmacy 48.8367; Globulin 2.9 g/dL (1.3-4.6); Glucose 99 mg/dL (65-115); Osmolality Calculated 286 mOsm/kg (285-295); Potassium 3.5 mmol/L (3.5-5.1); Sodium 137 mmol/L (136-145); Total Protein 6.9 g/dL (6.6-8.7)
[2025-08-07] MEDS: piperacillin-tazobactam 3.375 GM in sodium chloride 0.9% (plus) 50 ML IV ×3 (05:47→22:48)
[2025-08-07 05:48] LABS: Lactate (Lactic Acid level) 0.8 mmol/L (0.5-2.2)
[2025-08-07 05:51] LABS: Digoxin 0.8 ng/mL (0.6-1.2)
[2025-08-07 05:52] LABS: Procalcitonin 0.14 ng/mL (0-0.5)
[2025-08-07 06:05] LABS: NT Pro B Type Natriuretic Pept 5481 pg/mL (0-450)
--- NOTE | 2025-08-07 09:54 | XRR_ITS ---
PROCEDURE INFORMATION: Exam: XR Left Knee Exam date and time: 08/07/2025 10:35 AM Age: 85 years old Clinical indication: Pain; Knee; Left; Additional info: Left knee pain TECHNIQUE: Imaging protocol: Radiologic exam of the left knee. Views: 1 or 2 views. COMPARISON: No relevant prior studies available. FINDINGS: Bones/joints: Normal bony alignment. No acute osseous abnormality. No knee joint effusion. Soft tissues: Normal. Vasculature: Atherosclerotic vascular disease. XR/XR knee LT 1-2V [id number] IMPRESSION: No acute osseous abnormality.
--- NOTE | 2025-08-07 09:55 | PC.NURSE ---
Dr. Solares gave verbal orders and read back to start Digoxin 125 mcg PO Daily now and Left knee xray.
[2025-08-07] MEDS: pantoprazole 40 mg SDV IVP (10:54)
--- NOTE | 2025-08-07 11:28 | USCV_ITS ---
Caity Nolan Age: 85 Gender: M : 1940 Exam Date: 08/07/2025 02:41 Ordering Phys: Carlos Manuel Solares MD Technologist: DAVID Exam Location: [facility] – [place] Indication: AMS, hx Afib, diast. CHF BP: 111 / 80 HR: 84 Rhythm: [place] fibrillation Technical Quality: Adequate MEASUREMENTS (Male / Female) Normal Values 2D ECHO LV Diastolic Diameter PLAX 3.8 cm 4.2 - 5.9 / 3.9 - 5.3 cm IVS Diastolic Thickness 1.0 cm 0.6 - 1.0 / 0.6 - 0.9 cm IVS Systolic Thickness 1.5 cm LVPW Diastolic Thickness 1.1 cm 0.6 - 1.0 / 0.6 - 0.9 cm LVPW Systolic Thickness 1.3 cm LVOT Diameter 1.6 cm LV Ejection Fraction 2D Teich 56.7 % LV Ejection Fraction MOD 4C 53.1 % LA Diameter 3.5 cm Aorta at Sinotubular Diameter 2.9 cm IVC Diameter 2.0 cm M-MODE LA Ao Ratio MM 1.8 AV Cusp Separation MM 1.6 cm DOPPLER AV Peak Velocity 185.0 cm/s LVOT Peak Velocity 39.0 cm/s AV Area Cont Eq vti 0.3 cm squared AV Area Cont Eq pk 0.4 cm squared MV Peak Velocity 102.0 cm/s MV Area PHT 3.8 cm squared Mitral E to A Ratio 569.0 TR Peak Velocity 238.0 cm/s TR Peak Gradient 22.7 mmHg TV Peak E Velocity 25.0 cm/s PV Peak Velocity 57.0 cm/s FINDINGS Left Ventricle Normal LV size and ejection fraction of 55%. No gross wall motion abnormalities. Segmental wall motion analysis difficult because of poor apical and parasternal windows Right Ventricle Possibly normal RV size and ejection fraction. Right Atrium Severely increased right atrial size. Left Atrium Severely increased left atrial size. IA Septum Appears to be intact. Mitral Valve Thickened mitral valve. Mild mitral annular calcification. Mild mitral valve regurgitation. Aortic Valve Thickened aortic valve. Tricuspid Valve Mild tricuspid valve regurgitation. Pulmonic Valve Pulmonic valve not well visualized. Pericardium No pericardial effusion. Aorta Normal aortic annulus size. IVC Normal inferior vena cava. CONCLUSIONS Normal LV size and ejection fraction of 55%. No gross wall motion abnormalities. Segmental wall motion analysis is difficult because of poor apical and parasternal windows. Severely dilated atria. Thickened mitral valve. Mild mitral annular calcification. Mild mitral valve regurgitation. Thickened aortic valve. Mild tricuspid valve regurgitation. There is no pericardial effusion. There are no intracardiac masses. Compared to the study from 08/19/2023, significantly increased atrial volume indicis. Dr Luis Miguel Gaffney MD [facility] (Electronically Signed) Final Date: 07 August 2025 13:31 S
--- NOTE | 2025-08-07 16:43 | P.PN_ITS ---
Subjective 2 Subjective: Patient was seen this morning, currently alert oriented x 1, following all commands, denies any fevers, no chills, no cough, he is much more alert and awake, no family was at bedside, currently in A-fib, heart rates do increase to the 110s, - Reexamined this afternoon, patient's f amily members are at bedside, discussed patient's hospitalization, respiratory failure, aspiration pneumonia, sepsis, A- fib with RVR discussed plans on potentially discharge in the next 24 hours, patient's heart rates with minimal movement, do increase into the 110s, A-fib, blood pressures remain on the softer end, discussed my plans on monitoring his heart rate, blood pressures, if reasonable surgery can discharge him tomorrow Vitals/I&O/Wt Last Vital Signs Temp 98.8 F 08/07/25 11:22 Pulse 96 08/07/25 12:00 Resp 21 H 08/07/25 11:22 BP 82/63 08/07/25 11:22 Pulse Ox 97 08/07/25 11:22 O2 Del Method Room Air 08/07/25 11:22 O2 Flow Rate 3 08/04/25 12:00 08/07/25 08/07/25 08/07/25 06:59 14:59 22:59 Intake Total 200 / 1007.440 1229 / 1230 Output Total 450 / 2850 200 / 200 Balance -250 / -9827.853 8560 / 1030 Weight last 48 hrs Weight 58.604 kg Weight 60.373 kg Physical Exam 2 Const: COMMON NORMALS: no acute distress ORIENTATION/CONSCIOUSNESS: Yes awake, Yes oriented to person and Yes oriented to place; not oriented to time Resp: COMMON NORMALS: normal respiratory effort, No retractions and No use of accessory muscles AUSCULTATION: crackles and wheezes Cardio: COMMON NORMALS: regular rate, regular rhythm, S1 normal heart sound present and S2 normal heart sound present RATE: regular rate RHYTHM: r egular rhythm HEART SOUNDS: S1 normal heart sound present and S2 normal heart sound present GI: COMMON NORMALS: Normal to inspection, nondistended, normoactive bowel sounds present and non-tender Extremity: COMMON NORMALS: no pedal edema Neuro: SENSORIUM/ORIENTATION: Yes oriented to person, Yes oriented to place and No oriented to time Psych: COMMON NORMALS: mental status grossly normal Urinary Catheter Management: Oneill: Cath Placed During This Visit: yes Reason for Continuing Indwelling Catheter: Other Urinary Catheter Date of Insertion: 08/03/25 Data 08/07/25 05:10 08/07/25 05:10 A&P Assessment and plan 1. Atrial fibrillation with RVR: 2. Diastolic heart failure: 3. Hypothyroid: 4. Acute on chronic renal insufficiency: 5. Anemia: 6. Rhabdomyolysis: 7. Fall: 8. AMS (altered mental status): Plan: Altered mental status Head CT CT/CT head wo con* [id number] IMPRESSION: 1. No acute intracranial abnormality. 2. Right-sided paranasal sinus disease. Facial CT CT/CT facial bones wo con* [id number] IMPRESSION: 1. No acute osseous findings. 2. Mild subcutaneous fat stranding along the chin could represent contusion. 3. Right-sided paranasal sinus diseas -Patient remains globally encephalopathic, is alert to person, not place, to time can follow some commands -Component of aspiration pneumonia -Concern for sepsis secondary to aspiration pneumonia -IV Zosyn - Neurochecks - NIH stroke scale - Aspiration precautions Aspiration pneumonia, Zosyn Diastolic CHF exacerbation - Fluid overload - Elevated BNP - Hold off on Lasix today monitor blood pressure Rhabdomyolysis - Resolved Atrial fibrillation with rapid ventricle response - IV amiodarone, transition to p.o. amiodarone - status post 2 doses of IV digoxin, transition to p.o. digoxin - Continue home Eliquis Acute kidney injury, monitor creatinine Leukocytosis -Concern for aspiration pneumonia - blood cultures - On dysphagia level diet - IV Zosyn - Monitor respiratory status closely Hemoglobin A1c, 6.2 Protein calorie malnutrition, physical deconditioning, consult dietitian Full code Eliquis for DVT prophylaxis PDMP PDMP Reviewed: Not Reviewed Attestations 2 Medical Necessity Statement*: Patient requires hospitalization for altered mental status, aspiration pneumonia, diastolic CHF, atrial fibrillation Diagnoses Atrial fibrillation with RVR I48.91 Diastolic heart failure I50.30 Hypothyroid E03.9 Acute on chronic renal insufficiency N28.9; N18.9 Anemia D64.9 Rhabdomyolysis M62.82 Fall W19.XXXA AMS (altered mental status) R41.82
[2025-08-08] VITALS: BP 112/63; PULSE 84; RESP 17; TEMP 36.6; O2SAT 96
[2025-08-08 03:33] LABS: Hematocrit 28.9 % (37-53); Hemoglobin 9.30 g/dL (11.27-16.99); Mean Corpuscular HGB Conc 32.2 g/dL (30-55); Mean Corpuscular Hemoglobin 30.5 pg (27-33); Mean Corpuscular Volume 94.8 fl (82-101); Nucleated Red Blood Cells % 0 %; Platelet Count 178 10^3/cmm (157-399); Red Blood Count 3.05 10^6/uL (3.85-5.65); White Blood Count 5.70 10^3/uL (3.29-11.43)
[2025-08-08 03:54] LABS: Alanine Aminotransferase 19 U/L (0-41); Albumin Level 3.7 g/dL (3.5-5.2); Alkaline Phosphatase 19 U/L (40-130); Anion Gap 14.2 (5-19); Aspartate Amino Transferase 27 U/L (0-40); Blood Urea Nitrogen 20 mg/dL (8-23); Calcium 8.4 mg/dL (8.5-10.5); Carbon Dioxide 26 mmol/L (22-29); Chloride 99 mmol/L (98-107); Creatinine Clr Calc Pharmacy 54.9413; Globulin 2.7 g/dL (1.3-4.6); Glucose 105 mg/dL (65-115); Osmolality Calculated 285 mOsm/kg (285-295); Potassium 3.2 mmol/L (3.5-5.1); Sodium 136 mmol/L (136-145); Total Protein 6.4 g/dL (6.6-8.7)
[2025-08-08 04:00] VITALS: BP 135/69; PULSE 80; RESP 19; TEMP 36.8; O2SAT 96
[2025-08-08 04:01] LABS: Digoxin 0.7 ng/mL (0.6-1.2)
[2025-08-08 05:37] VITALS: PULSE 83
[2025-08-08] MEDS: piperacillin-tazobactam 3.375 GM in sodium chloride 0.9% (plus) 50 ML IV (06:38)
[2025-08-08 07:14] VITALS: BP 117/71; PULSE 76; RESP 19; TEMP 36.7; O2SAT 97
[2025-08-08 08:00] VITALS: PULSE 86; O2SAT 96
--- NOTE | 2025-08-08 10:18 | PC.NURSE ---
Verbal orders received by provider to ELKIN guillermo
--- NOTE | 2025-08-08 11:01 | PC.SOCIAL ---
IMM Update pg 2 of IMM Updated and reviewed w/ patient. Copy provided and copy dated, initialed and placed in chart.
[2025-08-08 11:28] VITALS: BP 108/64; PULSE 86; RESP 14; TEMP 36.5; O2SAT 97
[2025-08-08] MEDS: pantoprazole 40 mg SDV IVP (11:44)
--- NOTE | 2025-08-08 12:06 | PC.OT ---
OT TREATMENT ATTEMPTED. PATIENT DECLINES [place] AND REPORTS THAT HE WILL PERFORM GROOMING AT HOME LATER TODAY. PER STAFF, PATIENT IS TO D/C HOME LATER TODAY.
--- NOTE | 2025-08-14 12:51 | P.DS_ITS ---
Discharge Providers Date of Admission: 08/03/25 07:47 Date of Discharge: August 14, 2025 Attending Provider at Admission: Carlos Manuel Solares MD Attending Provider at Discharge: Carlos Manuel Solares MD Primary Care Provider: JAKOB Younger Diagnoses at Discharge Discharge Diagnosis 1. Atrial fibrillation with RVR: 2. Diastolic heart failure, unspecified HF chronicity: 3. Hypothyroid: 4. Acute on chronic renal insufficiency: 5. Other iron deficiency anemia: 6. Rhabdomyolysis: 7. Fall: 8. AMS (altered mental status): Reason for Visit Reason for Visit: fall Hospital Course Hospital Course Caity Nolan is a 85 year old male with a past medical history of hypothyro idism, atrial fibrillation, diastolic CHF, who presents to [facility] for altered mental status, fall. Currently patient is alert to person, not to place, not to time, he can follow some commands but is encephalopathic, according to ER provider patient was found on the floor covered in urine and feces, currently he is globally encephalopathic, I cannot discern any facial droop, no slurring of his words, he moves bilateral upper and lower extremities, he has no pain complaints, no chest pain, shortness of breath, does have bruising throughout, no family members are at bedside Patient was admitted to [facility] for altered mental status, A-fib with RVR, rhabdomyolysis, JOCELYN, aspiration pneumonia Altered mental status Head CT CT/CT head wo con* [id number] IMPRESSION: 1. No acute intracranial abnormality. 2. Right-sided paranasal sinus disease. Facial CT CT/CT facial bones wo con* [id number] IMPRESSION: 1. No acute osseous findings. 2. Mild subcutaneous fat stranding along the chin could represent contusion. 3. Right-sided paranasal sinus diseas - Manage as inpatient, received PT OT, speech therapy eval -Component of aspiration pneumonia -Concern for sepsis secondary to aspiration pneumonia - Received IV antibiotics, overall clinically improved, completed antibiotic therapy as inpatient - On discharge is alert to person, place, time and he follows commands, discharged to the care of his family who are involved in his care Diastolic CHF, received infusion diuresis, overall clinically improved euvolemic on discharge A-fib with RVR, required IV amiodarone, transition to p.o. amiodarone, digoxin, discharged with close follow-up with primary care Patient's family pursued guardianship, which they have secured, patient was discharged to the care of his family, who will be actively involved in his care Rhabdomyolysis, resolved Deconditioning, protein malnutrition, discussed with patient and family that he needs to drink protein shakes twice daily, ambulation with care, increased risk of falls, family has secured guardianship, he will be discharged to care if his family, who are actively involved in his care, and who care about Caity's wellbeing and want him to do well and thrive Physical Exam Const: COMMON NORMALS: no acute distress Resp: COMMON NORMALS: normal respiratory effort, No retractions, No use of accessory muscles and clear to auscultation bilaterally AUSCULTATION: clear to auscultation bilaterally Cardio: COMMON NORMALS: regular rate, regular rhythm, S1 normal heart sound present and S2 normal heart sound present RATE: regular rate RHYTHM: regular rhythm HEART SOUNDS: S1 normal heart sound present and S2 normal heart sound present GI: COMMON NORMALS: Normal to inspection, nondistended, normoactive bowel sounds present and non-tender Extremity: COMMON NORMALS: no pedal edema Psych: COMMON NORMALS: mental status grossly normal Urinary Catheter Management: Oneill: Cath Placed During This Visit: yes, but has since been removed by the nurse Reason for Continuing Indwelling Catheter: Accurate Measurement of Urinary Output in Critically Ill Patients Urinary Catheter Date of Insertion: 08/03/25 Date Urinary Catheter Removed: 08/08/25 Time Urinary Catheter Discontinued: 10:32 Discharge Data Studies Completed and Pending Completed Studies During Hospitalization Category Date Time Status CT cervical spin wo con* [id number] Stat Cat Scan 08/03/25 05:[address] facial bones wo con* [id number] Stat Cat Scan 08/03/25 04:[address] head wo con* [id number] Routine Cat Scan 08/04/25 09:[address] head wo con* [id number] Stat Cat Scan 08/03/25 04:48 Completed XR chest 1V portable [id number] Routine Exams 08/04/25 09:01 Completed XR chest 1V portable [id number] Stat Exams 08/03/25 04:48 Completed XR knee LT 1-2V [id number] Routine Exams 08/07/25 09:54 Completed XR pelvis 1-2V* [id number] Stat Exams 08/03/25 05:30 Completed CV carotid duplex BI* [id number] Routine Ultrasound 08/03/25 11:28 Completed CV. echo complete* [id number] Routine Ultrasound 08/07/25 11:28 Completed Radiology Impressions Face CT 08/03/25 04:50 IMPRESSION: 1. No acute osseous findings. 2. Mild subcutaneous fat stranding along the chin could represent contusion. 3. Right-sided paranasal sinus disease Cervical Spine CT 08/03/25 05:15 IMPRESSION: 1. No acute cervical spine fracture. 2. Trace left mastoid effusion. Pelvis X-Ray 08/03/25 05:30 IMPRESSION: 1. No definite acute osseous findings. CT could be considered for further evaluation if warranted. 2. Large colonic stool. Correlate for constipation. Carotid Doppler Study 08/03/25 11:28 IMPRESSION: 1. Bilateral common carotid artery generalized intimal thickening and mild carotid bulb atheromatous calcific eccentric plaque with no hemodynamically significant (not greater than 50%) carotid artery or vertebral artery stenosis. 2. Bilateral vertebral artery antegrade flow of normal velocity flow direction. REFERENCES: SRU CRITERIA. The degree of internal carotid artery stenosis is based on criteria defined by the Society of Radiologists in Ultrasound (SRU). Normal is no stenosis. Mild is less than 50% stenosis. Moderate is 50-69% stenosis. Severe is greater than 69% stenosis to near occlusion. Near occlusion is a markedly narrowed lumen. Total occlusion is no detectable patent lumen. Zoey Javier, et al. Carotid Artery Stenosis: [place]-Scale and Doppler US Diagnosis-Society of Radiologists in Ultrasound Consensus Conference. Radiology 2003; [id number]. Head CT 08/04/25 09:00 IMPRESSION: Pansinusitis. Involutional changes. No acute abnormality identified. Chest X-Ray 08/04/25 09:01 IMPRESSION: Stable findings. Knee X-Ray 08/07/25 09:54 IMPRESSION: No acute osseous abnormality. Laboratory Results WBC 5.70 10^3/uL (3.29-11.43) 08/08/25 03:03 RBC 3.05 10^6/uL (3.85-5.65) L 08/08/25 03:03 Hgb 9.30 g/dL (11.27-16.99) L 08/08/25 03:03 Hct 28.9 % (37-53) L 08/08/25 03:03 MCV 94.8 fl (82-101) 08/08/25 03:03 MCH 30.5 pg (27-33) 08/08/25 03:03 MCHC 32.2 g/dL (30-55) 08/08/25 03:03 RDW 14.8 % (12.1-15.1) 08/08/25 03:03 Plt Count 178 10^3/cmm (157-399) 08/08/25 03:03 MPV 9.5 fL (7.4-10.4) 08/08/25 03:03 Neut % (Auto) 66.3 % 08/08/25 03:03 Lymph % (Auto) 13.9 % 08/08/25 03:03 [place] % (Auto) 15.8 % 08/08/25 03:03 Eos % (Auto) 1.1 % 08/08/25 03:03 Baso % (Auto) 0.4 % 08/08/25 03:03 Neut # (Auto) 3.79 10^3/uL (1.8-7.7) 08/08/25 03:03 Lymph # (Auto) 0.8 10^3/uL (0.8-4.8) 08/08/25 03:03 [place] # (Auto) 0.9 10^3/uL (0.2-0.9) 08/08/25 03:03 Eos # (Auto) 0.1 10^3/uL (0.0-0.8) 08/08/25 03:03 Baso # (Auto) 0.0 10^3/uL (0.0-0.1) 08/08/25 03:03 Nucleated RBC % (auto) 0 % 08/08/25 03:03 Nucleated RBCs # 0.0 /100WBC 08/08/25 03:03 PT 18.40 SECONDS (12.1-14.9) H 08/03/25 05:33 INR 1.44 (0.8-1.2) H 08/03/25 05:33 Specimen Type Arterial 08/04/25 13:00 Sample Site Brachial, left 08/04/25 13:00 ABG pH 7.48 (7.35-7.45) H 08/04/25 13:00 ABG pCO2 27.9 mmHg (35-45) L 08/04/25 13:00 ABG pO2 65.5 mmHg (80.0-100.0) L 08/04/25 13:00 ABG PO2/FiO2 Ratio 204 08/04/25 13:00 ABG HCO3 20.6 mmol/L (22-26) L 08/04/25 13:00 ABG Base Excess -2.1 mmol/L (-2.0-2.0) L 08/04/25 13:00 Dylan Test N/a 08/04/25 13:00 Hematocrit 31.0 % (42-52) L 08/04/25 13:00 O2 Delivery Device Nc 08/04/25 13:00 O2 Liters/Min 3.0 % 08/04/25 13:00 FiO2 32.0 % 08/04/25 13:00 [employer] Installer ID Gd 08/04/25 13:00 Sodium 136 mmol/L (136-145) 08/08/25 03:03 Potassium 3.2 mmol/L (3.5-5.1) L 08/08/25 03:03 Chloride 99 mmol/L (98-107) 08/08/25 03:03 Carbon Dioxide 26 mmol/L (22-29) 08/08/25 03:03 Anion Gap 14.2 (5-19) 08/08/25 03:03 BUN 20 mg/dL (8-23) 08/08/25 03:03 Creatinine 0.8 mg/dL (0.7-1.2) 08/08/25 03:03 GFR Calculation Not Reportable 08/08/25 03:03 Glucose 105 mg/dL (65-115) 08/08/25 03:03 POC Glucose 109 mg/dL (70-110) 08/08/25 10:57 Estimat Average Glucose 131 08/03/25 05:33 Hemoglobin A1c 6.2 % (4.0-6.0) H 08/03/25 05:33 Calculated Osmolality 285 mOsm/kg (285-295) 08/08/25 03:03 Lactic Acid 1.3 mmol/L (0.5-2.2) 08/04/25 14:04 Lactate 0.8 mmol/L (0.5-2.2) 08/07/25 05:10 Calcium 8.4 mg/dL (8.5-10.5) L 08/08/25 03:03 Magnesium 2.4 mg/dL (1.7-2.3) H 08/03/25 05:33 Iron 97 ug/dL (59-158) 08/03/25 05:33 Ferritin 103 ng/mL (30-400) 08/03/25 05:33 Total Bilirubin 1.3 mg/dL (0.15-1.2) H 08/08/25 03:03 AST 27 U/L (0-40) 08/08/25 03:03 ALT 19 U/L (0-41) 08/08/25 03:03 Alkaline Phosphatase 19 U/L (40-130) L 08/08/25 03:03 Ammonia 21 umol/L (16-60) 08/04/25 14:04 Creatine Kinase 1642 U/L (39-308) H* 08/03/25 05:33 Troponin T Baseline 72 ng/L (0-15) H 08/03/25 12:52 Troponin T 120 Minute 70.44 ng/L (0-15) H 08/03/25 14:40 Delta Troponin T -1.56 ABS# (0-10) L 08/03/25 14:40 Troponin T Hi Sens 6Hr 70.91 ng/L (0-15) H 08/03/25 19:05 Troponin T Hi Sens 6Hr Delta -1.09 ng/L (0-12) L 08/03/25 19:05 C-Reactive Protein 63.9 mg/L (0.0-4.9) H 08/07/25 05:10 NT-Pro-B Natriuret Pep 5481 pg/mL (0-450) H 08/07/25 05:10 Total Protein 6.4 g/dL (6.6-8.7) L 08/08/25 03:03 Albumin 3.7 g/dL (3.5-5.2) 08/08/25 03:03 Globulin 2.7 g/dL (1.3-4.6) 08/08/25 03:03 Triglycerides 73 mg/dL (0-150) 08/03/25 05:33 Cholesterol 158 mg/dL (0-200) 08/03/25 05:33 LDL Cholesterol, Calc 89 mg/dL (50-129) 08/03/25 05:33 HDL Cholesterol 54 mg/dL (60-100) L 08/03/25 05:33 LDL/HDL Ratio 1.65 RATIO (0.00-3.22) 08/03/25 05:33 Cholesterol/HDL Ratio 2.93 mg/dL (1.0-5.00) 08/03/25 05:33 Procalcitonin 0.14 ng/mL (0-0.5) 08/07/25 05:10 TSH 4.14 uIU/mL (0.27-4.20) 08/03/25 05:33 Urine Color Yellow (Yellow) 08/03/25 04:55 Urine Appearance Clear (CLEAR) 08/03/25 04:55 Urine pH 7.0 (5-7) 08/03/25 04:55 Ur Specific [place] 1.014 (1.005-1.030) 08/03/25 04:55 Urine Protein Trace (Negative) A 08/03/25 04:55 Urine Glucose (UA) Negative (Normal) 08/03/25 04:55 Urine Ketones Negative (Negative) 08/03/25 04:55 Urine Blood 1+ (Negative) A 08/03/25 04:55 Urine Nitrate Negative (Negative) 08/03/25 04:55 Urine Bilirubin Negative (Negative) 08/03/25 04:55 Urine Urobilinogen 1.0 mg/dL (Negative) 08/03/25 04:55 Ur Leukocyte Esterase Negative (Negative) 08/03/25 04:55 Urine RBC 0-2 /hpf (0-2) 08/03/25 04:55 Urine WBC 0-5 /hpf (0-5) 08/03/25 04:55 Ur Squamous Epith Cells 0-5 /hpf (0-5) 08/03/25 04:55 Amorphous Sediment Not Reportable 08/03/25 04:55 Urine Bacteria None seen /hpf (NONE) 08/03/25 04:55 Hyaline Casts 7.42 /lpf 08/03/25 04:55 Digoxin 0.7 ng/mL (0.6-1.2) 08/08/25 03:03 Vitals Last Vital Signs Temp 97.7 F 08/08/25 11:28 Pulse 86 08/08/25 11:28 Resp 14 08/08/25 11:28 BP 108/64 08/08/25 11:28 Pulse Ox 97 08/08/25 11:28 O2 Del Method Room Air 08/08/25 08:00 O2 Flow Rate 3 08/04/25 12:00 Discharge Plan Discharge Patient Disposition: Home Health Service Condition: Stable Prescriptions: New amiodarone [Pacerone] 200 mg Tablet See Rx Instructions .ROUTE .COMPLEX Qty: 60 0RF Rx Instructions: 2tabs for bid 3days, 1 tab for bid for 3days, 1 tab daily digoxin 125 mcg (0.125 mg) Tablet 125 mcg PO DAILY 30 Days Qty: 30 0RF Continued potassium chloride 20 mEq tablet extended release 20 meq PO BID Qty: 180 3RF Eliquis 5 mg tablet 5 mg PO BID Qty: 180 3RF polyethylene glycol 3350 [Miralax] 17 gram powder in packet 17 g PO DAILY PRN (Reason: constipation) Qty: 14 0RF psyllium husk (with sugar) [Metamucil Free (with sugar)] 3 gram/7 gram Powder 1 tbsp PO DAILY Changed furosemide 20 mg tablet 40 mg PO DAILY Qty: 180 3RF Patient Comments: Family states they give patient 3 tabs daily for the last month . Discontinued spironolactone 25 mg tablet 25 mg PO DAILY Qty: 90 1RF diltiazem HCl 90 mg capsule,extended release 12 hr 90 mg PO ONCE Qty: 90 3RF No Action (DME) rollator walker with seat See Rx Instructions .Route .MEDSUPPLY Qty: 1 0RF Rx Instructions: As directed potassium chloride 20 mEq/15 mL liquid 20 meq PO BID 30 Days Qty: 900 2RF levothyroxine 25 mcg tablet See Rx Instructions .ROUTE .COMPLEX Qty: 90 0RF Dose Instruction: TAKE ONE TABLET BY MOUTH DAILY Rx Instructions: TAKE ONE TABLET BY MOUTH DAILY Discharge Order = DC NOW: Discharge Order (Routine); Ordered 08/08/25 Ordered By: Carlos Manuel Solares Referrals: [facility] [Outside] Mali Ferguson FNP [Primary Care Provider, Family Practice] - 08/13/25 12:00 pm Discharge Diet: Cardiac Discharge Activity: Resume usual activity Patient Instructions: Digoxin (By mouth), Amoxicillin (By mouth), Amiodarone (By mouth), A-fib (Atrial Fibrillation) (DC), Altered Mental Status (GEN), Fall Prevention (DC), Opioid Safety, Patient Portal & Thania Instructions Discharge Attestations Time Spent in Discharge Care*: greater than 30 min Quality Metrics Clinical Quality Measures [ No reported AMI, CVA or VTE this stay] Coding Level of Care Code 18540 Total time (in minutes) for Discharge: 45 Diagnoses Atrial fibrillation with RVR I48.91 Diastolic heart failure, unspecified HF chronicity I50.30 Heart failure chronicity: unspecified Hypothyroid E03.9 Acute on chronic renal insufficiency N28.9; N18.9 Other iron deficiency anemia D50.8 Anemia type: iron deficiency Iron deficiency anemia type: other iron deficiency Rhabdomyolysis M62.82 Fall W19.XXXA AMS (altered mental status) R41.82
== END 2025-08-08 13:48 | disposition home health service (06) | DRG 308 ==
LOC: ER 07:35 → ER IP 07:47 → CSU 14:41
PROVIDERS: Emergency Medicine; Admitting Provider Family Medicine; Emergency Provider Emergency Medicine; PCP Nurse Practitioner Family; Visit Provider Family Medicine
DX: I48.91 Unspecified atrial fibrillation (principal); G93.41 Metabolic encephalopathy; J69.0 Pneumonitis due to inhalation of food and vomit; I50.30 Unspecified diastolic (congestive) heart failure; M62.82 Rhabdomyolysis; N17.9 Acute kidney failure, unspecified; E46 Unspecified protein-calorie malnutrition; Z68.1 Body mass index [BMI] 19.9 or less, adult; E03.9 Hypothyroidism, unspecified; D50.9 Iron deficiency anemia, unspecified; Z79.01 Long term (current) use of anticoagulants
CPT/HCPCS: 36415; 36416; 36600; 51702; 70450; 70486; 71045; 72125; 72170; 73560; 80053; 80061; 80162; 81001; 82140; 82550; 82728; 82803; 82962; 83036; 83540; 83605; 83735; 83880; 84145; 84443; 84484; 85025; 85610; 86140; 87040; 92507; 92523; 92526; 92610; 93005; 93306; 93880; 94664; 96365; 96366; 96372; 96375; 97116; 97161; 97165; 97530; 99285; A4222; J0282; J0283; J1160; J1650; J1938; J2060; J2470; J2543; J3480; J7030; J9999; P9046

== ENCOUNTER → 2025-08-13 13:03 | Outpatient (BNVA) | payer MEDICARE, SELFPAY | PROVIDERS: PCP Nurse Practitioner Family; Visit Provider Nurse Practitioner Family | DX: I48.91 Unspecified atrial fibrillation (principal) | CPT/HCPCS: 80053; 85025 ==

== ENCOUNTER → 2025-09-11 08:58 | Outpatient (BNVA) | payer MEDICARE, SELFPAY | PROVIDERS: PCP Nurse Practitioner Family; Referring Provider Nurse Practitioner Family; Visit Provider Nurse Practitioner Family | DX: I48.91 Unspecified atrial fibrillation (principal); Z79.01 Long term (current) use of anticoagulants; I50.30 Unspecified diastolic (congestive) heart failure; J69.0 Pneumonitis due to inhalation of food and vomit; E86.0 Dehydration; W19.XXXA Unspecified fall, initial encounter; Z87.891 Personal history of nicotine dependence; E03.9 Hypothyroidism, unspecified; I48.20 Chronic atrial fibrillation, unspecified | CPT/HCPCS: 36415; 80048; 80162; 83880; 93005; 99213 ==

== ENCOUNTER → 2025-09-17 12:12 | Outpatient (BNVA) | payer MEDICARE, SELFPAY | PROVIDERS: PCP Nurse Practitioner Family; Visit Provider Nurse Practitioner Family | DX: Z01.89 Encounter for other specified special examinations (principal); R78.89 Finding of other specified substances, not normally found in blood | CPT/HCPCS: 80162 ==